=== PATIENT | male | born 1950 | race Caucasian/White ===

== ENCOUNTER → 2018-02-12 03:49 | Outpatient (CLI) | payer MEDICARE, SELFPAY ==
[2018-02-12 07:37] LABS: HCT 42.3 % (40.0-50.0); Mean Corp. HGB Concentration 33.1 g/dL (32.0-36.0); Mean Corpuscular Hemoglobin 28.9 pg (27.0-33.0); Mean Corpuscular Volume 87.4 fL (80-95); Mean Platelet Volume 9.9 fL (8.0-11.0); Platelet Count 213 x1000/uL (130-400); RBC 4.84 m/cumm (4.50-6.00); White Blood Cell Count 5.28 k/cumm (4.4-10.8)
[2018-02-12 08:47] LABS: Ferritin 17 ng/mL (8-388)
== END ==
PROVIDERS: PCP Emergency Medicine; Visit Provider Emergency Medicine
DX: D64.9 Anemia, unspecified (principal)
CPT/HCPCS: 36415; 85027; 82728

== ENCOUNTER 2018-03-22 07:41 | Day surgery (SDC) | payer MEDICARE, BC, SELFPAY ==
--- NOTE | 2018-03-22 06:55 | PDOC.DSDIS_ITS ---
Discharge Plan Disposition Patient Disposition: HOME Condition: Good Discharge Details Reason For Visit: colon cancer screening Attending Provider: Christa Mary Primary Care Provider: Mark Todd Home Meds and New Rx's Prescriptions: Continue multivitamin with iron [One Daily Multi-Vit w-Mineral] tablet 1 tab PO DAILY RF: 0 cholecalciferol (vitamin D3) 1,000 unit capsule 1,000 unit PO DAILY RF: 0 ferrous sulfate 325 mg (65 mg iron) tablet 325 mg PO BID RF: 0 betamethasone, augmented 50 GM gel 50 gm Topical BID PRN RF: 0 Discontinued polyethylene glycol 3350 17 gram powder in packet 255 g PO DAILY Qty: 15 RF: 0 bisacodyl [Dulcolax (bisacodyl)] 5 mg tablet,delayed release (DR/EC) 5 mg PO ONCE Qty: 4 RF: 0 Discharge Instructions Instructions: Colonoscopy (DC), Diverticulosis (DC) Additional Instructions: Findings: mild diverticulosis Follow up: 10 years New Medications: none Please call if you develop: fevers >101.5 Nausea or Vomiting Abdominal pain that is not transient 1. Because there will be medication in your system for the next 24 hours, you may feel a little sleepy. Your coordination will be affected. Therefore: a. Do not drive or operate dangerous equipment for 24 hours. b. Do not drink alcohol beverages for 24 hours (not even beer). c. Plan to go home and rest for the day. 2. Generally there are no restrictions on your activity after a day or so has gone by, but you may feel a bit fatigued for a few days. 3 After you arrive home you may have a light meal and return to a normal diet as you can tolerate it without feeling sick to your stomach. 4. After surgery, you may feel pain or discomfort. This should be only transient , but if it persists please contact your doctor. 5. If there are any questions regarding the findings of your procedure, please feel free to contact your doctor. 6. If you are unable to contact your doctor with a problem, contact the hospital at [phone]. 7. Continue all your regular medications unless directed otherwise. I understand the above instructions and have no questions. Signature of Patient or Responsible Adult Escort Date/Time Name of Responsible Adult Escort Signature of Nurse Date/Time Activity:: Activity as Tolerated Diet:: high fiber diet Discharge Orders Discharge Orders: Discharge Order (Routine); Ordered 03/22/18 Ordered By: Christa Mary
--- NOTE | 2018-03-22 06:56 | COLE_ITS ---
Colonoscopy Report Date of procedure: 03/22/18 Pre-op diagnosis general: Colon cancer screening Post-op diagnosis procedure note: other (Diverticulosis) Procedure: Colonoscopy Surgeon: Christa Mary Anesthesia proc note operative: MAC (José Antonio alvarez, CARMEN/ Erik Lobo, MIGUEL) Estimated blood loss (mL): 0 Pathology: none sent Complications: None Disposition: same day Indications: Mr. Medrano is a pleasant 67 year old seen in the office to discuss a screening Colonoscopy. His last Colonoscopy was in 2009 and was normal. Risks , benefits and complications have been reviewed. Complications include but are not limited to bleeding, pain, perforation, missed small lesion/polyp, sore throat, aspiration and adverse reaction to the medications. Questions were entertained and answered to their satisfaction and they wished to proceed. No guarantees were given or implied. Prep: Miralax/Dulcolax Procedure Start Time: 09:32 Procedure End Time: :51 Retraction Time: 11 minutes Findings: Mild diverticulosis of sigmoid colon Procedure Description: After informed consent was obtained the patient was taken to the procedure room and placed in a left decubitous position. Monitors were applied and a time out was done. The patients name, date of , procedure, allergies to medications and metal in their body was reviewed. The patient was then sedated. Once sedated and comfortable a rectal exam was done. External exam was normal. Internal exam revealed a normal sphincter tone and no palpable masses. The scope was then introduced and retrofelexed. No internal hemorrhoids were identified. The scope was then advanced to the cecum without difficulty. The TI and appendiceal orifice were identified. The scope was advanced into the ileum which was normal. The prep was adequate. The scope was then slowly retracted over 11 minutes back into the rectum. The scope was removed and the patient was woken up and taken back to Same day surgery in stable condition. The patient tolerated the procedure well and there were no immediate complications. Follow up: The patient should follow up in 10 years unless they develop changes in bowel habits or other new gastrointestinal complaints.
[2018-03-22 07:58] VITALS: BP 116/64; PULSE 60; RESP 16; TEMP 36; O2SAT 99
[2018-03-22] MEDS: Lactated Ringers 1,000 ML 80 ML IV (08:20)
[2018-03-22 10:20] VITALS: BP 100/66; PULSE 69; RESP 16; TEMP 35.9; O2SAT 96
== END 2018-03-22 10:45 | disposition home or self-care (01) ==
PROVIDERS: PCP Emergency Medicine; Visit Provider Surgery
PROC: 0DJD8ZZ Inspection of Lower Intestinal Tract, Via Natural or Artificial Opening Endoscopic (ICD-10-PCS; CPT 45378; principal; 2018-03-22 09:15)
DX: Z12.11 Encounter for screening for malignant neoplasm of colon (principal); K57.30 Diverticulosis of large intestine without perforation or abscess without bleeding
CPT/HCPCS: G0121

== ENCOUNTER → 2018-03-22 08:49 | Outpatient (BNVA) | payer MEDICARE, BC, SELFPAY | PROVIDERS: Visit Provider Surgery | DX: R69 Illness, unspecified (principal) ==

== ENCOUNTER 2020-02-17 07:58 | Outpatient (CLI) | payer MEDICARE, BC, SELFPAY ==
[2020-02-20 20:49] LABS: SARS-CoV-2 RNA Undetected (Undetected); SARS-CoV-2 Specimen Source Nasopharynx
== END 2020-02-17 08:18 ==
PROVIDERS: PCP Emergency Medicine; Visit Provider Physician Assistant
DX: Z11.59 Encounter for screening for other viral diseases (principal)
CPT/HCPCS: U0003

== ENCOUNTER 2020-04-20 17:55 | Emergency (ER) | payer MEDICARE, BC, SELFPAY ==
[2020-04-20 18:01] VITALS: BP 119/68; PULSE 69; RESP 18; TEMP 36.3; O2SAT 98
--- NOTE | 2020-04-20 18:15 | ED.GENADUL_ITS ---
Discharge Plan Disposition Patient Disposition: HOME Condition: Good Discharge Details Clinical Impression: Laceration of ear Primary Care Provider: Mark Todd ED Provider: Marylin Du Home Meds and New Rx's Prescriptions: Continued multivitamin with iron [One Daily Multi-Vit w-Mineral] tablet 1 tab PO DAILY RF: 0 cholecalciferol (vitamin D3) 1,000 unit capsule 1,000 unit PO DAILY RF: 0 ferrous sulfate 325 mg (65 mg iron) tablet 325 mg PO BID RF: 0 betamethasone, augmented 50 GM gel 50 gm Topical BID PRN RF: 0 Shingrix Adjuvant Component-PF Suspension 0.5 ml IM ONCE Qty: 0.5 RF: 1 Discharge Instructions Instructions: Laceration (ED) Additional Instructions: Keep wound clean and dry. Please allow the adhesive to come off naturally. Do not pick or pull at this. Do not put any ointment over this is may cause it to breakdown prematurely. May Tylenol and/or ibuprofen as needed for discomfort. Please monitor for signs infection including redness, warmth, drainage, increased pain, fever/chills. If he develop these or other new/worsening symptoms please seek care urgently once again. Otherwise, please follow up with primary care as needed. Referrals: Mark Todd, [Primary Care Provider] - Discharge Data Discharge Date/Time-TO BE ENTERED AT DEPARTURE: 04/20/20 18:37 Medical Decision Making Patient is a pleasant 69-year-old male presenting today with chief complaint of laceration to his left ear. He reports that prior to arrival he was running in the wise when a tree branch struck him in the ear. Denies other injury the time of the incident. Unknown tetanus status. On exam, patient has a 1 cm curvilinear laceration that does appear to be a slight flap over the antihelix. This does not go through or into the cartilage. No active bleeding. At the tip of the flap there is a very thin piece of tissue that potentially is nonviable. I did discuss with patient. Remaining the laceration does align very well. And I discussed risk/benefits of cleansing the wound and closing with adhesive. He voiced understanding and wished to proceed. Last tetanus was in 2011. Will update this today. Please see procedure note. Wound is copiously irrigating some clean the base in bloodless field no foreign body or debris noted. Wound edges were reapproximated and a thin layer of adhesive was applied. We discussed wound and adhesive care. He was given return precautions, in particular signs of infection. All his questions and concerns were addressed and he is agreement this plan. HPI General Mode of arrival: ambulatory . Date/Time Provider Initiated Documentation: 04/20/20 18:15 . Limitations to Documentation: no limitations . Information obtained by: patient and RN notes reviewed . History of Present Illness 69 year old M presents to the emergency department with the chief complaint of right ear laceration, described as mild, with intensity rated at 1. Quality is described as aching, and is localized to the head (ear). Patient reports no radiation. Patient started experiencing this hour(s) and it has been constant. No relieving factors improve symptom(s), No exacerbating factors reported . Patient notes no other symptoms.. Patient did receive the following treatments prior to arrival, none Related Data Home Medications Medication Instructions Recorded Confirmed betamethasone, augmented 50 gm TOPICAL BID PRN script 10/22/16 11/09/19 cholecalciferol (vitamin D3) 25 1,000 unit PO DAILY 03/10/18 11/09/19 mcg (1,000 unit) capsule ferrous sulfate 325 mg (65 mg 325 mg PO BID tab 03/10/18 11/09/19 iron) tablet multivitamin with iron 1 tab PO DAILY 03/10/18 11/09/19 adjuvant AS01B (PF)vial 1 of 2 0.5 ml IM ONCE #0.5 ml 03/20/20 Previous Rx's Medication Instructions Recorded adjuvant AS01B (PF)vial 1 of 2 0.5 ml IM ONCE #0.5 ml 03/20/20 Allergies Allergy/AdvReac Type Severity Reaction Status Date / Time Penicillins AdvReac Mild RASH Verified 04/09/20 11:04 General Stated Complaint: Laceration LEENA: 4 Review of Systems Constitutional Constitutional: Reports as per HPI, Denies chills and Denies fever(s) Musculoskeletal Musculoskeletal: Reports as per HPI Integumentary/Breasts Skin/Breast: Reports as per HPI Neurologic Neurologic: Reports as per HPI, Denies sensory deficit and Denies paresthesias [facility] Medical History Anemia Celiac disease Depression Diverticulosis large intestine w/o perforation or abscess w/bleeding DJD (degenerative joint disease) of knee Duodenitis Eczema Hearing loss Hemorrhoids Hx MRSA infection Surgical History Status post total left knee replacement (~2013) Family History Mother , age 83 Essential hypertension Heart disease Breast cancer Father , age 89 Heart disease Hyperlipidemia Stroke Brother , age 65 Alcohol abuse Cancer Daughter No problems noted. Daughter No problems noted. Maternal Grandfather , age 69 Lung cancer Paternal Grandfather , age 84 No problems noted. Maternal Grandmother No problems noted. Paternal Grandmother No problems noted. Social History Smoking/Tobacco Use Status: Never Second Hand Exposure: Yes Alcohol Intake: current Alcohol Intake frequency: 0-2 drinks per day Alcohol type: beer Drug use: Never Substance use type: marijuana Caregiver/Support person: No Household members: spouse Housing: house Communication Needs: Hard of Hearing Do you need help understanding health information?: Never Pets and animals: No Sexually active: No Do you think of yourself as: straight/heterosexual Current gender identity: male How often do you talk on the phone with friends or family?: three or more times per week How often do you get together with friends or relatives?: three or more times per week How often do you attend gnosticist or orthodox services?: 4 or more times per year Do you belong to any clubs or organized social groups?: no Panel score (0-1 are the most socially isolated patients): 2 What type of physical activity do you participate in: walking and weight lifting Duration: 15-30 minutes/day Frequency: 5-6 times per week Tomasa/Zoroastrian: Church Special tomasa needs: No Seatbelt use: always Helmet use: No Drive intox or ride w/intox helper/driver: No Do you feel safe at home: Yes Do you feel safe in your relationship?: Yes Exam Const General: cooperative, healthy appearing, comfortable, no acute distress and well developed Nutritional Appearance: average body habitus and well nourished Orientation: alert and awake [facility] Outer ear/TM images: 1. superficial flap laceration Resp Effort & Inspection: normal respiratory effort, able to speak in complete sentences and no respiratory distress Cardio Rate: regular rate Rhythm: regular rhythm Skin Trauma: laceration (as drawn above) Neuro General: patient alert and patient awake Cognition: normal cognition Speech: speech normal Gait: normal gait Sensory Exam: no sensory deficits noted Psych Appearance: grossly normal and well kempt Mental Status: mental status grossly normal Speech and Movement: speech and movement normal Course Vital Signs Vital signs: Vital Signs Temperature 36.3 C L 04/20/20 18:01 Pulse 69 04/20/20 18:01 Respiratory Rate 18 04/20/20 18:01 Blood Pressure 119/68 04/20/20 18:01 Pulse Oximetry 98 04/20/20 18:01 Temperature 36.3 C L 04/20/20 18:01 Temperature Source Tympanic 04/20/20 18:01 Pulse 69 04/20/20 18:01 Respiratory Rate 18 04/20/20 18:01 Respiratory Effort Non-Labored 04/20/20 18:02 Blood Pressure 119/68 04/20/20 18:01 Blood Pressure Position Sitting 04/20/20 18:01 Pulse Oximetry 98 04/20/20 18:01 Oxygen Delivery Method Room Air 04/20/20 18:01 Oxygen Flow Rate 0 04/20/20 18:01 Pain Level 1 04/20/20 18:01
== END 2020-04-20 18:37 | disposition home or self-care (01) ==
PROVIDERS: Emergency Provider Physician Assistant; PCP Emergency Medicine
DX: S01.311A Laceration without foreign body of right ear, initial encounter (principal); W20.8XXA Other cause of strike by thrown, projected or falling object, initial encounter
CPT/HCPCS: 12011; 90471

== ENCOUNTER 2020-05-10 09:07 | Outpatient (CLI) | payer MEDICARE, BC, SELFPAY ==
[2020-05-13 15:11] LABS: Patient Race White; SARS-CoV-2 RNA Undetected (Undetected); SARS-CoV-2 Specimen Source Nasal
== END 2020-05-10 09:27 ==
PROVIDERS: PCP Emergency Medicine; Visit Provider Nurse Practitioner Family
DX: Z11.59 Encounter for screening for other viral diseases (principal)
CPT/HCPCS: U0003

== ENCOUNTER 2020-11-13 09:19 | Outpatient (CLI) | payer MEDICARE, BC, SELFPAY ==
[2020-11-13 12:47] LABS: Ferritin 22 ng/mL (26-388)
[2020-11-13 17:09] LABS: PSA, Diagnostic 0.6 ng/mL (0.0-4.5)
== END 2020-11-13 09:20 | disposition home or self-care (01) ==
PROVIDERS: PCP Emergency Medicine; Visit Provider Emergency Medicine
DX: K90.0 Celiac disease (principal); N40.0 Benign prostatic hyperplasia without lower urinary tract symptoms
CPT/HCPCS: 36415; 82728; 84153

== ENCOUNTER 2021-11-21 17:23 | Outpatient (CLI) | payer MEDICARE, SELFPAY | END 2021-11-21 17:24 | disposition home or self-care (01) | LOC: LBO 17:27 | PROVIDERS: PCP Nurse Practitioner Family; Visit Provider Nurse Practitioner Family | DX: U07.1 COVID-19 (principal) | CPT/HCPCS: 36415; 82565 ==

== ENCOUNTER 2022-04-01 02:00 | Outpatient (CLI) | payer MEDICARE, SELFPAY ==
[2022-04-01 12:16] LABS: Abs Immature Grans 0.01 10^3/uL (0.0-0.06); Absolute Basophil Count 0.03 10^3/uL (0.0-0.2); Absolute Eosinophil Count 0.18 10^3/uL (0.0-0.7); Absolute Lymphocyte Count 2.05 10^3/uL (1.2-3.4); Absolute Monocyte Count 0.64 10^3/uL (0.1-0.8); Absolute Neutrophil Count 2.89 10^3/uL (1.2-6.7); Basophils % 0.5; Eosinophils % 3.1; HCT 43.1 % (40.0-50.0); Immature Grans % 0.2; Lymphocytes % 35.3; MCH 30.4 pg (27.0-33.0); MCHC 32.5 % (32.0-36.0); MCV 94 fL (80-95); MPV 9.9 fL (8.0-11.0); Neutrophils % 49.9; Platelet Count 247 10^3/uL (130-400); RDW 12.8 % (11.8-14.1); RDW-SD 44.1 fL
[2022-04-01 12:28] LABS: Iron 68 ug/dL (65-175); Total Iron Binding Capacity 314 ug/dL (250-450); Transferrin Sat 22 % (20-55)
[2022-04-01 12:36] LABS: ALT 60 U/L (16-63); AST 47 U/L (15-37); Albumin 3.6 g/dL (3.4-5.0); Alkaline Phosphatase 61 U/L (46-116); Anion Gap 7.7 mmol/L (3-11); BUN 17 mg/dL (7-18); Bilirubin, Total 0.2 mg/dL (0.2-1.0); CO2 27.3 mmol/L (21.0-32.0); Calcium 8.9 mg/dL (8.5-10.1); Calculated LDL 85 mg/dL (<100); Chloride 105 mmol/L (98-107); Cholesterol 145 mg/dL (<200); Estimated GFR 81.47 (mL/min/1.73m2); Ferritin 34 ng/mL (26-388); Glucose 90 mg/dL (74-106); HDL Cholesterol 53 mg/dL (40-60); Potassium 4.1 mmol/L (3.5-5.1); Sodium 140 mmol/L (136-145); Total Protein 6.7 g/dL (6.4-8.2); Triglyceride 35 mg/dL (<150)
== END 2022-04-01 02:01 | disposition home or self-care (01) ==
LOC: LOS 02:00
PROVIDERS: PCP Nurse Practitioner Family; Visit Provider Family Medicine
DX: I10 Essential (primary) hypertension (principal); E61.1 Iron deficiency; K90.0 Celiac disease; Z13.6 Encounter for screening for cardiovascular disorders
CPT/HCPCS: 36415; 80053; 80061; 82728; 83540; 83550; 85025

== ENCOUNTER 2022-11-30 07:42 | Emergency (ER) | payer MEDICARE, SELFPAY ==
[2022-11-30 07:53] VITALS: BP 138/67; PULSE 68; RESP 14; TEMP 36.8; O2SAT 97
--- NOTE | 2022-11-30 08:31 | ED.GENADUL_ITS ---
Discharge Plan Disposition Patient Disposition: Home Condition: Stable Discharge Details Clinical Impression: Tick bite of left axillary region Primary Care Provider: Rickey Strong ED Provider: Omid Rincon Home Meds and New Rx's Prescriptions: Continued multivitamin with iron [One Daily Multi-Vit w-Mineral] tablet 1 tab PO DAILY cholecalciferol (vitamin D3) 1,000 unit capsule 1,000 unit PO DAILY ferrous sulfate 325 mg (65 mg iron) tablet 325 mg PO DAILY Discontinued halobetasol propionate 0.05 % ointment 1 applic topical BID PRN cephalexin 500 mg capsule 500 mg PO PRN Rx Instructions: Take 2000mg 1 hour prior to dental appointment Discharge Instructions Instructions: Tick Bite (ED) Referrals: Rickey Strong, [facility] [Primary Care Provider] - Medical Decision Making 72-year-old male here with tick bite left axilla 3 days ago with small pimple this morning. Patient notes tick was attached for approximately 2 to 3 hours. He regularly performs tick checks and is certain the tick could not of been attached longer. Tick was not engorged. Tick was a dog tick. No signs of infection or really any inflammation at tick bite site other than small raised papule. Plan for discharge with continued monitoring. Usual and customary discharge instructions reviewed with patient. HPI General Mode of arrival: ambulatory . Date/Time Provider Initiated Documentation: 11/30/22 07:58 . Limitations to Documentation: no limitations . Information obtained by: patient . History of Present Illness 72 year old M presents to the emergency department with the chief complaint of tick bite, described as mild, and is localized to the left (axillla). Patient started experiencing this day(s) (3) Related Data Home Medications Medication Instructions Recorded Confirmed cholecalciferol (vitamin D3) 25 1,000 unit PO DAILY 03/10/18 11/30/22 mcg (1,000 unit) capsule multivitamin with iron (One Daily 1 tab PO DAILY 03/10/18 11/30/22 Multivitamins with Minerals tablet) ferrous sulfate 325 mg (65 mg 325 mg PO DAILY 11/15/21 11/30/22 iron) tablet Allergies Allergy/AdvReac Type Severity Reaction Status Date / Time Penicillins AdvReac Mild RASH Verified 11/30/22 07:56 General Stated Complaint: RashLesion LEENA: 4 Review of Systems Constitutional Constitutional: Denies fever(s) Neurologic Neurologic: Denies paresthesias [facility] All Active Problems Tick bite of left axillary region (Acute) Iron deficiency (Acute) chronic mild prior w/u at [facility] 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 Celiac disease (Chronic) Remote diagnosis - after eval for borderline anemia with low ferritin Remote diagnosis at [facility]-no GI symptoms, diagnosed after evaluation for iron deficiency-borderline anemia Positive antibody test, unclear evaluation at [facility]. Notes not available for review looks as a work-up occurred before EMR no old notes available. Per patient no response to gluten therapy and he has discontinued this Unclear if this was biopsy proven. No response to gluten therapy, no symptoms on regular diet Question diagnosis Acquired hallux rigidus (Chronic) right great toe Medical History Anemia Celiac disease COVID Depression Diverticulosis large intestine w/o perforation or abscess w/bleeding DJD (degenerative joint disease) of knee Duodenitis Eczema Hearing loss Hemorrhoids Hx MRSA infection Surgical History Status post total left knee replacement (~2013) Family History Mother , age 83 Essential hypertension Heart disease Breast cancer Father , age 89 Heart disease Hyperlipidemia Stroke Brother , age 65 Alcohol abuse Cancer Daughter No problems noted. Daughter No problems noted. Maternal Grandfather , age 69 Lung cancer Paternal Grandfather , age 84 No problems noted. Maternal Grandmother No problems noted. Paternal Grandmother No problems noted. Social History Smoking/Tobacco Use Status: Never Second Hand Exposure: Yes Smoking risk assessment performed?: Yes Alcohol Intake: current Alcohol Intake frequency: a few times a week Alcohol type: beer Drug use: Never Substance use type: does not use Caregiver/Support person: No Household members: spouse Housing: house Communication Needs: Hard of Hearing and Corrective Lenses Do you need help understanding health information?: Never Pets and animals: No Sexually active: No Do you think of yourself as: straight/heterosexual Current gender identity: male What is your relationship status?: How often do you talk on the phone with friends or family?: three or more times per week How often do you get together with friends or relatives?: three or more times per week How often do you attend advent or quaker services?: 4 or more times per year Do you belong to any clubs or organized social groups?: yes Panel score (0-1 are the most socially isolated patients): 4 What type of physical activity do you participate in: weight lifting Duration: 30-45 minutes/day Frequency: 3-4 times per week Tomasa/Church: [employer] Special tomasa needs: No Seatbelt use: always Helmet use: No Drive intox or ride w/intox test driver: No Do you feel safe at home: Yes Do you feel safe in your relationship?: Yes Exam Const General: cooperative and no acute distress Skin General skin exam: no erythema, no fluctuance and no induration Lesions: other (2mm tick bite with no inflammation left axilla) Extrem Other: no left axillary lymphadenopathy Course Vital Signs Vital signs: Vital Signs Temperature 36.8 C 11/30/22 07:53 Pulse 68 11/30/22 07:53 Respiratory Rate 14 11/30/22 07:53 Blood Pressure 138/67 11/30/22 07:53 Pulse Oximetry 97 11/30/22 07:53 Temperature 36.8 C 11/30/22 07:53 Temperature Source Temporal Artery Scan 11/30/22 07:53 Pulse 68 11/30/22 07:53 Respiratory Rate 14 11/30/22 07:53 Blood Pressure 138/67 11/30/22 07:53 Blood Pressure Position Sitting 11/30/22 07:53 Pulse Oximetry 97 11/30/22 07:53 Oxygen Delivery Method Room Air 11/30/22 07:53 Oxygen Flow Rate 0 11/30/22 07:53
== END 2022-11-30 08:49 | disposition home or self-care (01) ==
PROVIDERS: Emergency Provider Student in an Organized Health Care Education/Training Program; PCP Nurse Practitioner Family
DX: S40.862A Insect bite (nonvenomous) of left upper arm, initial encounter (principal); W57.XXXA Bitten or stung by nonvenomous insect and other nonvenomous arthropods, initial encounter
CPT/HCPCS: 99281; 99282

== ENCOUNTER 2024-01-12 03:33 | Outpatient (CLI) | payer MEDICARE, SELFPAY ==
--- OUTSIDE RECORDS SUMMARY | 2024-01-12 03:35 | XMS_ITS | Encounter Summary ---
Author Organization [facility] [place] [address] Care Team Providers Care [employer] Phot[employer] Detailer Name Role Phone Mark Todd DO Primary Care Provider Encounter Details Date Type Department Care Team (Late st Contact Info) Description 04/04/2011 2:15 PM EDT [place] [id number] Diamante Wang RN Social History Tobacco Use Types Packs/Day Years Used Date Smoking Tobacco: Never Assessed Sex and Gender Information Value Date Recorded Sex Assigned at Not on file Gender Identity Not on file Sexual Orientation Not on file documented as of this encounter Plan of Treatment Not on file documented as of this encounter Visit Diagnoses Not on filedocumented in this encounter Care Teams [employer] Phot[employer] Detailer Relationship Specialty Start Date End Date Mark Todd DO [address] [place] [address] PCP - General 05/21/10 documented as of this encounter
--- OUTSIDE RECORDS SUMMARY | 2024-01-12 03:35 | XMS_ITS | Encounter Summary ---
Author Organization Replaced By [facility] [place] [address] Care Team Providers Care Fluid Designer Name Role Phone Perez, Mark KYE Primary Care Provider Reason for Visit * Reason Comments Follow-up Encounter Details Date Type Department Care Team ([facility] st Contact Info) Description 12/22/2013 3:15 PM EDT Office Visit Dermatology at [address] [place] [phone] Phani Nolasco MD [address] [place] [address] [place] [address] Irritant contact dermatitis (Primary Dx) Social History Tobacco Use Types Packs/Day Years Used Date Smoking Tobacco: Never Sex and Gender Information Value Date Recorded Sex Assigned at Not on file Gender Identity Not on file Sexual Orientation Not on file documented as of this encounter Patient Instructions * Patient Instructions* Eneida Rain LPN - 12/22/2013 3:59 PM EDT [facility] Dermatitis: After Your Visit Your Care Instructions Dermatitis is the general name used for any rash or inflammation of the skin. Different kinds of dermatitis cause different kinds of rashes. Common causes of a rash include new medicines, plants (such as poison oak or poison gasper), heat, stress, and allergies to soaps, cosmetics, detergents, chemicals, and fabrics. Certain illnesses can also cause a rash. Unless caused by an infection, these rashes cannot be spread from person to person. How long your rash will last depends on what caused it. Rashes may last a few days or months. Follow-up care is a little part of your treatment and safety. Be sure to make and go to all appointments, and call your doctor if you are having problems. It???s also a good idea to know your test results and keep a list of the medicines you take. How can you care for yourself at home? ?? Do not scratch. Cut your nails short, and file them smooth. Or you may wear gloves if this helpskeep you from scratching. ?? If you use soap on the rash, choose a gentle soap and use as little as possible. ?? Put cold, wet cloths on the rash to reduce itching. ?? Keep cool, and stay out of the sun. Heat makes itching worse. ?? Leave the rash open to the air when you can. If your clothes have to cover the rash, wear cottonor silk. ?? If the rash itches, use hydrocortisone cream. Follow the directions on the label. Calamine lotion may help for plant rashes. ?? Try an [id number]-tlf-[id number] antihistamine such as diphenhydramine (Benadryl) or chlorpheniramine (Chlor-Trimeton). Follow the directions on the label. ?? If you get a prescription steroid cream or pills, use them as directed. When should you call for help? Call your doctor now or seek immediate medical care if: ?? You have signs of infection, such as: ?? Increased pain, swelling, warmth, or redness. ?? Red streaks leading from the rash. ?? Pus draining from the rash. ?? A fever. ?? You have joint pain along with the rash. ?? The rash gets worse or spreads to other parts of your body. Watch closely for changes in your health, and be sure to contact your doctor if: ?? You do not get better after 2 to 3 weeks of home treatment. Where can you learn more? Visit our health information library at [email or web address] Networkso You can also view health information on [employer], your personal patient account. Log in or sign up today. Enter F270 in the search box to learn more about Dermatitis: After Your Visit. ?? [id number] [employer]. Care instructions adapted under license by [facility]. This care instruction is for use with your licensed healthcare professional. If you have questions about a medical condition or this instruction, always ask your healthcare professional. [employer] disclaims any warranty or liability for your use of this information. Content Version: 9.9.081514; Last Revised: November 12, 2012 documented in this encounter Progress Notes * Phani Nolasco MD - 12/22/2013 4:10 PM EDT Problem List: 1. Followup stasis dermatitis with autoeczematization. 2. History of patch test positive 3+ reaction to formaldehyde and diazolidinyl urea, 1+ reaction to budesonide. Mervin follows up and has been doing well. He found the Tubigrip stockings a bit problematic, so he is not wearing any support stockings. The clobetasol used sparingly was helpful and he has not really needed to use that much at all. The CeraVe seemed to make his skin more red, so he stopped that and instead just uses Vanicream as needed. Physical examination reveals a pleasant 62-year-old gentleman whose patchy erythema over the lateral arms has largely cleared. He continues to not have any areas of ulceration and today has no dermatitis of the lower extremities. His varicosities are not inflamed. Assessment and Plan: 1. Stasis dermatitis with autoeczematization now quiescent. a. Continue using Vanicream as needed as emollient, and clobetasol cream sparingly as needed for mild flares of his dermatitis. b. Continue to avoid his contact allergens. He knows that given his allergy to formaldehyde releasers that permanent press products will tend to irritate his skin and he tries to avoid those, but does not like to iron so does wear them to a degree. In fact, these may be playing a role when he has flares of his dermatitis. In any case, avoid his contact allergens and therefore would stick with his clobetasol sparingly p.r.n. and the Vanicream. Return to clinic will be p.r.n. COPY: Mark Todd D.O. documented in this encounter Plan of Treatment Not on file documented as of this encounter Visit Diagnoses Diagnosis Irritant contact dermatitis- Primary Contact dermatitis and other eczema, due to unspecified cause documented in this encounter Care Teams Fluid Designer Relationship Specialty Start Date End Date Mark Todd DO [address] [place] [address] PCP - General 05/21/10 documented as of this encounter
--- OUTSIDE RECORDS SUMMARY | 2024-01-12 03:35 | XMS_ITS | Encounter Summary ---
Author Organization Formerly [facility] [place] [address] Care Team Providers Care Climbing Guide Name Role Phone Mark Todd DO Primary Care Provider [phone] Reason for Visit * Reason Comments Follow-up Skin Check Encounter Details Date Type Department Care Team (Late st Contact Info) Description 06/15/2018 9:45 AM EST Office Visit Dermatology at [address] [phone] Phani Nolasco MD [address] [place] [address] [place] [address] Eczema, unspecified type; Tinea pedis of left foot Social History Tobacco Use Types Packs/Day Years Used Date Smoking Tobacco: Never Smokeless Tobacco: Never Sex and Gender Information Value Date Recorded Sex Assigned at Not on file Gender Identity Not on file Sexual Orientation Not on file documented as of this encounter Progress Notes * Phani Nolasco MD - 06/15/2018 9:45 AM EST Problem: 1. New dermatitis left lateral foot 2. Follow-up stasis dermatitis with auto eczematization 3. History of patch testing 3+ reaction to formaldehyde and diazolidinyl urea, 1+ reaction to budesonide Mervin follows up and has been doing well with the betamethasone dipropionate cream. He uses it sparingly, one tube has lasted him for the whole year. He does have little itchy spots on his arms and legs and he shows me today some eczematous papules. He says however that this winter after season his feet got quite cold and he was wearing hunting boots and then he developed a rash on the left lateral foot. He first tried the betamethasone cream there but that worsened it. He then has been using Lotrimin without benefit and switched to Tinactin which has been clearing the foot rash. Physical examination reveals a pleasant 67-year-old gentleman who has fading erythema on the left lateral foot extending back from the fifth digit which has its nail plate involved with tinea unguium, in a posterior direction to his ankle. He has erythematous excoriated papules on his hand and arm,2 or 3 are present today. He has varicosities of the lower extremity but minimal dermatitis on his calves and shins. Assessment plan: New onset this fall of left lateral foot dermatitis, responding to antifungal creams, probable tinea pedis. 1. Patient this morning applied Tinactin cream, any attempt at a diagnostic REBEKAH would be difficult to interpret in this setting 2. Clinical impression is that of tinea pedis. Continue Tinactin daily twice daily until erythema on foot clears. History of eczematous dermatitis, stasis dermatitis with auto eczematization 1. Now mostly quiescent 2. Patient is certainly not overusing his betamethasone dipropionate cream, will call in a refill [facility] in [place] for a 45 g tube with 3 refills. Continue to use sparingly once to twice daily. 3. Continue to avoid his known contact allergens. Return to clinic in 1 year CC: Mark Todd DO documented in this encounter Plan of Treatment Not on file documented as of this encounter Visit Diagnoses Diagnosis Eczema, unspecified type Tinea pedis of left foot Dermatophytosis of foot documented in this encounter Care Teams Climbing Guide Relationship Specialty Start Date End Date Mark Todd DO [address] [place] [address] PCP - General 05/21/10 documented as of this encounter
--- OUTSIDE RECORDS SUMMARY | 2024-01-12 03:35 | XMS_ITS | Encounter Summary ---
Author Organization [facility] [place] [address] Care Team Providers Care Machine I Cutter Name Role Phone Mark Todd DO Primary Care Provider Reason for Visit * Reason Comments Medication Refill Encounter Details Date Type Department Care Team (Late st Contact Info) Description 09/16/2023 Refill Dermatology at [address] [place] [address] Phani Nolasco MD [address] [place] [address] Social History Tobacco Use Types Packs/Day Years [...] on filedocumented in this encounter Care Teams Machine I Cutter Relationship Specialty Start Date End Date Mark Todd DO [address] [place] [address] [address] [place] [address] PCP - General 05/21/10 documented as of this encounter
--- OUTSIDE RECORDS SUMMARY | 2024-01-12 03:35 | XMS_ITS | Encounter Summary ---
Author Organization [facility] [place] [address] Care Team Providers Care Director Of Occupational Therapy Name Role Phone aMrk Todd DO Primary Care Provider Encounter Details Date Type Department Care Team (Late st Contact Info) Description 06/15/2018 Refill Dermatology at [address] [place] [address] Mariana Wild, EPIDEMIOLOGY INTERN Social History Tobacco Use Types Packs/Day Years [...] on filedocumented in this encounter Care Teams Director Of Occupational Therapy Relationship Specialty Start Date End Date Mark Todd DO [address] [place] [address] PCP - General 05/21/10 documented as of this encounter
--- OUTSIDE RECORDS SUMMARY | 2024-01-12 03:35 | XMS_ITS | Encounter Summary ---
Author Organization [facility] Address [facility] [place] [address] Care Team Providers Care Converter Operator Name Role Phone Mark Todd DO Primary Care Provider [phone] Reason for Visit * Reason Comments Allergy Testing Encounter Details Date Type Department Care Team ([facility] st Contact Info) Description 04/03/2011 3:15 PM EDT [place] [phone] José Antonio Dhillon MD [facility] [address] [place] [address] Contact dermatitis (Primary Dx) Discharge Disposition: Home Social History Tobacco Use Types Packs/Day Years Used Date Smoking Tobacco: Never Assessed Sex and Gender Information Value Date Recorded Sex Assigned at Not on file Gender Identity Not on file Sexual Orientation Not on file documented as of this encounter Last Filed Vital Signs Vital Sign Reading Time Taken Comments Blood Pressure 131/69 04/03/2011 3:05 PM EDT Pulse 68 04/03/2011 3:05 PM EDT Temperature - - Respiratory Rate 24 04/03/2011 3:05 PM EDT Oxygen Saturation 98% 04/03/2011 3:05 PM EDT Inhaled Oxygen Concentration - - Weight 79.4 kg (175 lb) 04/03/2011 3:05 PM EDT Height 180.3 cm (5' 11) 04/03/2011 3:05 PM EDT Body Mass Index 24.41 04/03/2011 3:05 PM EDT documented in this encounter Progress Notes * José Antonio Dhillon MD - 04/03/2011 3:22 PM EDT Subjective: Patient ID: Mervin Medrano is a 60 y.o. male. HPI Rash - unchanged from previously, on arms Patch testing placed 48 hours ago Review of Systems All other ROS neg Objective: Physical Exam Appears well in NAD Patch test read today showed 2+ response to formaldehyde (#21) and diazolidinyl urea (#25) Other true tests #1-29 were negative Assessment and Plan: Contact dermatitis - we discussed avoidence of substances containing formaldehyde (#21) and diazolidinyl urea (#25) He can take zyrtec for pruritis but avoid use of steroid creams on his back until he can return tomorrow for 72 hour patch test read 12 minutes out of this 16 minute visit (lasting from 3:10 - 3:26 pm) were spent in counseling discussing avoidence substances that may contain formaldehyde (#21) and diazolidinyl urea (#25) documented in this encounter Plan of Treatment Not on file documented as of this encounter Visit Diagnoses Diagnosis Contact dermatitis- Primary Contact dermatitis and other eczema, due to unspecified cause documented in this encounter Care Teams Converter Operator Relationship Specialty Start Date End Date Mark Todd DO [address] [place] [address] PCP - General 05/21/10 documented as of this encounter
--- OUTSIDE RECORDS SUMMARY | 2024-01-12 03:35 | XMS_ITS | Encounter Summary ---
Author Organization [facility] Address [facility] [place] [address] Care Team Providers Care Mortgage Accounting Clerk Name Role Phone Perez, Mark KEY Primary Care Provider [phone] Reason for Visit * Reason Comments Follow-up Encounter Details Date Type Department Care Team ([facility] st Contact Info) Description 04/04/2011 1:45 PM EDT [place] [phone] José Antonio Dhillon MD [facility] [address] ALLERGY [place] [address] Contact dermatitis (Primary Dx) Discharge Disposition: Home Social History Tobacco Use Types Packs/Day Years Used Date Smoking Tobacco: Never Assessed Sex and Gender Information Value Date Recorded Sex Assigned at Not on file Gender Identity Not on file Sexual Orientation Not on file documented as of this encounter Progress Notes * José Antonio Dhillon MD - 04/04/2011 2:20 PM EDT Subjective: Patient ID: Mervin Medrano is a 60 y.o. male. HPI Here for 72 hr patch test read Back itches a bit Rash still present on lower legs Review of Systems All other ROS neg Objective: Physical Exam Appears well in NAD Mild red papules on lower legs Final patch test read shows 3+ response to formaldehyde (#21) and diazolidinyl urea (#25), similar to yesterday He has new 3+ response to Imidazolidinyl urea (#26) and 1+ to budesonide (#27); other true tests #1-29 are negative Assessment and Plan: Contact dermatitis - he will avoid compounds containing formaldehyde (#21) and diazolidinyl urea (#25), Imidazolidinyl urea (#26) and budesonide (#27); he will try longer acting antihistamines such as cetirizine or fexofenadine prn for pruritis He will use moisturizing cream but avoid creams that may contain the above substances 13 minutes out of this 16 minute visit (lasting from 2:07 pm - 2:23 pm) discussing avoidence of contact sensitizers including formaldehyde (#21) and diazolidinyl urea (#25), Imidazolidinyl urea (#26)and budesonide (#27), including wood smoke and certain clothing items which may contain formaldehyde documented in this encounter Plan of Treatment Not on file documented as of this encounter Visit Diagnoses Diagnosis Contact dermatitis- Primary Contact dermatitis and other eczema, due to unspecified cause documented in this encounter Care Teams Mortgage Accounting Clerk Relationship Specialty Start Date End Date Mark Todd DO [address] [place] [address] PCP - General 05/21/10 documented as of this encounter
--- OUTSIDE RECORDS SUMMARY | 2024-01-12 03:35 | XMS_ITS | Encounter Summary ---
Author Organization [facility] [place] [address] Care Team Providers Care Title Examiner Name Role Phone Perez Mark KEY Primary Care Provider [phone] Encounter Details Date Type Department Care Team (Late st Contact Info) Description 03/15/2009 [place] [phone] Rehan Hernandez MD DERMATOLOGY Social History Tobacco Use Types Packs/Day Years Used Date Smoking Tobacco: Never Assessed Sex and Gender Information Value Date Recorded Sex Assigned at Not on file Gender Identity Not on file Sexual Orientation Not on file documented as of this encounter Plan of Treatment Not on file documented as of this encounter Procedures Procedure Name Priority Date/Time Associated Diagnosis Comments SURGICAL PATHOLOGY REPORT Routine 03/15/2009 12:32 PM EDT documented in this encounter Results * Surgical Pathology Report (03/15/2009 12:32 PM EDT) Pathologist [facility] Surgical Pathology Report [id number] ? Location: 4M The signing pathologist has (i) examined the relevant preparation(s) for the specimen(s) and (ii) rendered or confirmed the diagnosis(es). . ?Pathology Surgical Pathology Final Report Clinical Information Specimen Submitted: A - 4-mm punch, left shoulder, skin: Clinical History: Multiple erythematous granular well delineated plaques on legs arms trunk Clinical Diagnosis: GA vs CTCL vs eczema vs sarcoid Gross Description Labeled/Fixative: ? Labeled with the patient's name, formalin. Qty/Size/Weight: ?Single punch, 0.4 cm, yellow-mobley skin excised ?to a depth of 0.6 cm. Sections/Processi ng: ??Bisected. ??(T1) ??vms/EJR Microscopic Description Slides reviewed, microscopic description not recorded. Diagnosis Skin, left shoulder, punch biopsy: ?? Spongiotic dermatitis with acanthosis, focal parakeratosis, superficial perivascular lymphocytic infiltrate mixed with eosinophils (see Comment). CR-0 03/16/09 JLK 03/18/09 Verified by: ? Ten CALHOUN, PhD, Klarissa ?Dermatopatholog ist ?(Electronic Signature) The attending pathologist whose signature appears on this report has reviewed all diagnostic slides and has edited the gross and/or microscopic portion of the report in rendering the final pathologic diagnosis. Comment The histologic changes are ?? consistent with ??a spongiotic/eczema tous dermatitis. ??A PAS stain for fungal organisms is negative. ??Dermal granulomatous infiltrate is not seen. The findings are not diagnostic of CTCL. Follow up is recommended with re- biopsy if there is persistent or recurrent lesion, or if clinically indicated. KIMBERLEE PERDUE 03/15/2009 12:3 2 PM EDT Rehan Hernandez MD PATHOLOGY/CYTOLOGY O RDERABLES KIMBERLEE PERDUE documented in this encounter Visit Diagnoses Not on filedocumented in this encounter Care Teams Title Examiner Relationship Specialty Start Date End Date Mark Todd DO [address] [place] [address] [address] [place] [address] PCP - General 05/21/10 documented as of this encounter
--- OUTSIDE RECORDS SUMMARY | 2024-01-12 03:35 | XMS_ITS | Encounter Summary ---
Author Organization [facility] [address] Care Team Providers Care Plant General Manager Name Role Phone Perez Mark KEY Primary Care Provider [phone] Encounter Details Date Type Department Care Team (Late st Contact Info) Description 04/06/2009 [place] [phone] Heron Frey MD DERMATOPATHOLOGY Social History Tobacco Use Types Packs/Day Years [...] Associated Diagnosis Comments SURGICAL PATHOLOGY REPORT Routine 04/06/2009 5:45 PM EDT documented in this encounter Results * Surgical Pathology Report (04/06/2009 5:45 PM EDT) Pathologist [facility] Surgical Pathology Report [id number] ? Location: 4M The signing pathologist has (i) examined the relevant preparation(s) for the specimen(s) and (ii) rendered or confirmed the diagnosis(es). . ?Pathology Surgical Pathology Final Report Clinical Information Specimen Submitted: A - Skin, L anabaptism, Incisional biopsy (1): B - Skin, L anabaptism, 4-mm Punch (1): Clinical History: 3 cm fluctuant nodule on the L anabaptism, growing rapidly -- culture grew MRSA Clinical Diagnosis: Botryomycosis, furunculosis, atypical mycobacterial, deep fungal. Gross Description A - Labeled/Fixative : A exc left anabaptism, formalin. Qty/Size/Weight: ?Single, 0.9 x 0.4 x 0.3 cm. Tissue Description: ?? There is a pale, mobley-pink skin surface. Sections/Process ing: ??Inked. ??Trisected. ??Apical sections are ?submitted in (A1); cross-section in (A2) ?(T2) B - Labeled/Fixative : B punch L anabaptism, formalin. Qty/Size/Weight: ?Single punch, 0.4 cm, there is a pale, ?mobley-pink skin surface. Sections/Process ing: ??Bisected. ??(T1) ??vms/PPS Microscopic Description Slides reviewed, microscopic description not recorded. Special stains are performed. ?? Block ? Stain ?Result ( Positive / Negative ) ??A2,B1 ? AFB,GMS,Gram ?See comment. ?on each block Diagnosis A - Left anabaptism, incisional biopsy: ?Dermal neutrophilic abscess with necrosis (see Comment). B - Left anabaptism, punch biopsy: ?Dermal neutrophilic abscess with necrosis (see Comment). CR-0 04/09/09 VMS 04/09/09 Verified by: ? Rolly Maldonado MD ?Dermatopatholo gist ?(Electronic Signature) The attending pathologist whose signature appears on this report has reviewed all diagnostic slides and has edited the gross and/or microscopic portion of the report in rendering the final pathologic diagnosis. . Comment A & B - There is an extensive dermal neutrophilic infiltrate with abscess formation in the superficial and deep dermis. ??The infiltrate also involves hair follicles. ??The findings are similar to those seen in the previous specimens ([id number]). Stains for organisms (AFB, GMS, and Gram) were performed on sections from blocks A2 and B1. ??No definite bacteria were identified in the Gram-stained section from block A2. ??AFB and GMS stains were negative in sections from block A2. ??Gram stain on sections from block B1 showed an area in the deep dermis with Gram-positive cocci in clusters. ??AFB and GMS stains were negative in sections from block B1. ??The findings suggest infection. ??Correlation with culture results is recommended. KIMBERLEE PERDUE 04/06/2009 5:45 PM EDT Heron Frey MD PATHOLOGY/CYTOLOGY O MICHELLE KIMBERLEE PERDUE documented in this encounter Visit Diagnoses Not on filedocumented in this encounter Care Teams Plant General Manager Relationship Specialty Start Date End Date Mark Todd DO [address] [place] [address] PCP - General 05/21/10 documented as of this encounter
--- OUTSIDE RECORDS SUMMARY | 2024-01-12 03:35 | XMS_ITS | Encounter Summary ---
Author Organization [facility] [place] [address] Care Team Providers Care Keyboard Specialist Name Role Phone Mark Todd DO Primary Care Provider Encounter Details Date Type Department Care Team (Late st Contact Info) Description 04/03/2011 3:20 PM EDT [place] [phone] Diamante Wang RN Social History Tobacco Use [...] on filedocumented in this encounter Care Teams Keyboard Specialist Relationship Specialty Start Date End Date Mark Todd DO [address] [place] [address] PCP - General 05/21/10 documented as of this encounter
--- OUTSIDE RECORDS SUMMARY | 2024-01-12 03:35 | XMS_ITS | Encounter Summary ---
Author Organization [facility] [place] [address] Care Team Providers Care Desktop Technician Name Role Phone Mark Todd DO Primary Care Provider Encounter Details Date Type Department Care Team (Late st Contact Info) Description 07/31/2016 Refill Dermatology at [address] [place] [address] Mariana Wild, AUDIO VIDEO MECHANIC Social History Tobacco Use Types Packs/Day Years Used Date Smoking Tobacco: Never Sex and Gender Information Value Date Recorded Sex Assigned at Not on file Gender Identity Not on file Sexual Orientation Not on file documented as of this encounter Plan of Treatment Not on file documented as of this encounter Visit Diagnoses Not on filedocumented in this encounter Care Teams Desktop Technician Relationship Specialty Start Date End Date Mark Todd DO [address] [place] [address] PCP - General 05/21/10 documented as of this encounter
--- OUTSIDE RECORDS SUMMARY | 2024-01-12 03:35 | XMS_ITS | Clinical Summary ---
Author Organization [facility] [place] [address] Care Team Providers Care District Fire Management Officer Name Role Phone Mark Todd DO Primary Care Provider [phone] Allergies Active Allergy Reactions Criticality Noted Date Comments Cyclosporine 08/04/2013 Penicillins 08/04/2013 Medications Medication Sig Dispensed Refills Start Date End Date Status betamethasone dipropionate (DIPROLENE) 0.05 % Cream Apply to rash areas twice daily, prn 45 g 3 06/15/2018 Active tacrolimus (Protopic) 0.1 % Ointment APPLY TO RASH ON LEG TWO TIMES A DAY 60 g 5 09/16/2023 Active Active Problems Problem Noted Date Diagnosed Date Irritant contact dermatitis 12/22/2013 Allergic contact dermatitis 08/04/2013 Stasis dermatitis 08/04/2013 Social History Tobacco Use Types Packs/Day Years Used Date Smoking Tobacco: Never Smokeless Tobacco: Never Sex and Gender Information Value Date Recorded Sex Assigned at Not on file Gender Identity Not on file Sexual Orientation Not on file Last Filed Vital Signs Vital Sign Reading Time Taken Comments Blood Pressure 127/81 02/05/2012 4:06 PM EDT Pulse 64 02/05/2012 4:06 PM EDT Temperature - - Respiratory Rate 16 02/05/2012 4:06 PM EDT Oxygen Saturation 99% 02/05/2012 4:06 PM EDT Inhaled Oxygen Concentration - - Weight 79.4 kg (175 lb) 04/03/2011 3:05 PM EDT Height 180.3 cm (5' 11) 04/03/2011 3:05 PM EDT Body Mass Index 24.41 04/03/2011 3:05 PM EDT Plan of Treatment Health Maintenance Due Date Last Done Comments CT Colonography 1950 Colonoscopy 1950 Colorectal Cancer Screening 1950 FIT DNA 1950 FIT 1950 Sigmoidoscopy (10 year) with FIT yearly 1950 Sigmoidoscopy 1950 Hepatitis C Screening 1970 Lipid Screening 1970 Tdap adult 12/01/1971 Tetanus vaccine 12/01/1971 Zoster vaccine (1 of 2) 2002 Advance Directive 12/01/2007 Pneumoccocal Vaccine: 65+ (1 of 1 - PCV) 2017 Covid-19 Vaccine (1 - 2022-24 season) 2023 Influenza (Flu) vaccine (1 o f 1 - Influenza standard series) 02/28/2024 Care Teams District Fire Management Officer Relationship Specialty Start Date End Date Mark Todd DO [address] [place] [address] [address] [place], [place] [id number] PCP - General 05/21/10
--- OUTSIDE RECORDS SUMMARY | 2024-01-12 03:35 | XMS_ITS | Encounter Summary ---
Author Organization [facility] [place] [address] Care Team Providers Care Nba Player Name Role Phone Mark Todd DO Primary Care Provider [phone] Reason for Visit * Reason Comments Skin Check Encounter Details Date Type Department Care Team ([facility] st Contact Info) Description 08/04/2013 3:00 PM EST Office Visit Dermatology at [address] [phone] Phani Nolasco MD [address] [place] [address] [place] [address] Allergic contact dermatitis (Primary Dx); Stasis dermatitis, left Social History Tobacco Use Types Packs/Day Years Used Date Smoking Tobacco: Never Sex and Gender Information Value Date Recorded Sex Assigned at Not on file Gender Identity Not on file Sexual Orientation Not on file documented as of this encounter Progress Notes * Phani Nolasco MD - 08/04/2013 3:11 PM EST Problem: Dermatitis. Mervin is a 62-year-old gentleman who since the summer has had problems with dermatitis that seemed to begin on his legs, on the left leg in particular; but then it has involved both of his arms and occasionally on the underarms. He has been seen at [facility] and also at [facility] in the Allergy Clinic. Unfortunately, despite allergy testing and use of topical corticosteroid creams, he has been unable to stop a cycle of relative skin clearing and healing and then recurrence of his itchy dermatitis. Dr. Dhillon has done patch testing and found a 3+ response to formaldehyde and a diazolidinyl urea and a 1+ reaction to budesonide. Budesonide is a class B corticosteroid and in fact can cross react with fluocinonide and with triamcinolone. Problem: Pruritic dermatitis. Mervin is a 62-year-old gentleman who since last summer has had problems with pruritic dermatitis. It seemed to begin on his left leg and then became more generalized. He has been seen at [facility], but also at [facility] at the Allergy Clinic. Patch testing there apparently showed that he had a 3+ reaction to formaldehyde and a diazolidinyl urea and also had a +1 reaction to budesonide. He has been using triamcinolone and fluocinonide creams that were given to him by various providers for his itchy dermatitis, which seemed to have developed after he was mowing in a field. 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 He denies any past history of eczema or dermatitis. He is otherwise healthy but does have fairly marked varicosities of the left lower extremity. Orally he takes ibuprofen. The patient is seen in consultation today for Mark Todd. Physical examination reveals a pleasant, 62-year-old gentleman who has today patchy erythema over the lateral arms and some postinflammatory hyperpigmentation over the varicosities on the left lower extremity. He does not have any areas of ulceration. He has relatively minimal subcutaneous hemosiderin deposition of the left lower extremity. He has fairly minimal active dermatitis today. Assessment and Plan: Stasis dermatitis with autoeczematization, probably compounded by allergic contact dermatitis to budesonide and cross reacting to fluocinonide and triamcinolone creams. a. Discontinue triamcinolone and fluocinonide creams. b. Instead I recommended 1% clobetasol cream, applying sparingly to areas of pruritus as needed; 60 grams dispensed with two refills. c. Today the patient was provided with a pair of Tubigrip support stockings, 24-inch size D, that he can wear on a daily basis, taking off at night. d. I asked him to contact me in two to three weeks with his progress. I suspect with the combination of the above interventions that his pruritus will gradually decrescendo and then resolve. e. Return to clinic here at the point of diminishing returns. COPY: Mark Todd D.O. Note: Half an hour was spent with the patient, more than half spent in counseling. documented in this encounter Plan of Treatment Not on file documented as of this encounter Visit Diagnoses Diagnosis Allergic contact dermatitis- Primary Contact dermatitis and other eczema, due to unspecified cause Stasis dermatitis, left documented in this encounter Care Teams Nba Player Relationship Specialty Start Date End Date Mark Todd DO [address] [facility] [address] [place] [address] PCP - General 05/21/10 documented as of this encounter
--- OUTSIDE RECORDS SUMMARY | 2024-01-12 03:35 | XMS_ITS | Encounter Summary ---
Author Organization [facility] Address [facility] [place] [address] Care Team Providers Care Tongue Lining Stitcher Name Role Phone Mark Todd DO Primary Care Provider Reason for Visit * Reason Onset Date Comments Medication Refill 11/05/2011 Encounter Details Date Type Department Care Team (Late st Contact Info) Description 11/05/2011 [place] [address] José Antonio Dhillon MD [facility] [place] [address] Dermatitis; Multiple allergies Social History Tobacco Use Types Packs/Day Years Used Date Smoking Tobacco: Never Assessed Sex and Gender Information Value Date Recorded Sex Assigned at Not on file Gender Identity Not on file Sexual Orientation Not on file documented as of this encounter Miscellaneous Notes * Telephone Encounter - Karen Rivero - 11/05/2011 11:24 AM EDT PLEASE CALL [facility] documented in this encounter Plan of Treatment Not on file documented as of this encounter Visit Diagnoses Diagnosis Dermatitis Contact dermatitis and other eczema, due to unspecified cause Multiple allergies Other allergy, other than to medicinal agents documented in this encounter Care Teams Tongue Lining Stitcher Relationship Specialty Start Date End Date Mark Todd DO [address] [place], [place] [address] PCP - General 05/21/10 documented as of this encounter
--- OUTSIDE RECORDS SUMMARY | 2024-01-12 03:35 | XMS_ITS | Encounter Summary ---
Author Organization [facility] Address [facility] [place] [address] Care Team Providers Care Heating And Cooling Technician Name Role Phone Mark Todd DO Primary Care Provider Reason for Visit * Reason Onset Date Comments Medication Refill 08/13/2011 Encounter Details Date Type Department Care Team ([facility] st Contact Info) Description 08/13/2011 [place] [address] José Antonio Dhillon MD [facility] [address] [place] [address] Dermatitis Social History Tobacco Use Types Packs/Day Years Used Date Smoking Tobacco: Never Assessed Sex and Gender Information Value Date Recorded Sex Assigned at Not on file Gender Identity Not on file Sexual Orientation Not on file documented as of this encounter Miscellaneous Notes * Telephone Encounter - Marlene Araujo - 08/13/2011 9:07 AM EST He wouldl like this in a larger container if possible, please. documented in this encounter Plan of Treatment Not on file documented as of this encounter Visit Diagnoses Diagnosis Dermatitis Contact dermatitis and other eczema, due to unspecified cause documented in this encounter Care Teams Heating And Cooling Technician Relationship Specialty Start Date End Date Mark Todd DO [address] [place], [place] [address] PCP - General 05/21/10 documented as of this encounter
--- OUTSIDE RECORDS SUMMARY | 2024-01-12 03:35 | XMS_ITS | Encounter Summary ---
Author Organization [facility] Address [address] [place] [address] Care Team Providers Care Automobile Parker Name Role Phone Perez Mark Bhakta DO Primary Care Provider [phone] Encounter Details Date Type Department Care Team (Late st Contact Info) Description 11/13/2020 Lab Requisition [facility] Pathology & Laboratory Medicine - [facility] [address] [place], [place] [id number] Outr Resulting Lab, Provider Social History Tobacco Use Types Packs/Day Years Used Date Smoking Tobacco: Never Assessed Sex and Gender Information Value Date Recorded Sex Assigned at Not on file Gender Identity Not on file Sexual Orientation Not on file documented as of this encounter Plan of Treatment Not on file documented as of this encounter Procedures Procedure Name Priority Date/Time Associated Diagnosis Comments PSA TOTAL, DIAGNOSTIC Routine 11/13/2020 9:23 EDT documented in this encounter Results * PSA TOTAL, DIAGNOSTIC (11/13/2020 9:23 EDT) PSA 0.6 0.0 - 4.5 ng/mL 11/13/2020 17:05 EDT [facility] Blood VENOUS BLOOD / Unknown 11/13/2020 9:23 EDT 11/13/2020 15:46 EDT Narrative [facility] - 11/13/2020 17:05 EDT NOTE: Serum PSA concentration should not be interpreted as absolute evidence for the presence or absence of malignant disease. Assayed on Siemens Banyanaur XPT using chemiluminescent technology.??Values obtained by using different assay methods cannot be used interchangeably. Provider Outr Resulting Lab CHEMISTRY & BLOOD GAS ORDERABLES [facility] [address] [place] [address] documented in this encounter Visit Diagnoses Not on filedocumented in this encounter Care Teams Automobile Parker Relationship Specialty Start Date End Date Mark Todd DO [address] [place] [address] PCP - General 07/03/09 documented as of this encounter
--- OUTSIDE RECORDS SUMMARY | 2024-01-12 03:35 | XMS_ITS | Encounter Summary ---
Author Organization [facility] Address [facility] [place] [address] Care Team Providers Care Warehouse Coordinator Name Role Phone Mark Todd DO Primary Care Provider Reason for Visit * Reason Onset Date Comments Medication Refill 07/02/2011 Encounter Details Date Type Department Care Team (Late st Contact Info) Description 07/02/2011 [place] [address] José Antonio Dhillon MD [facility] [address] [place] [address] Dermatitis Social History Tobacco Use Types Packs/Day Years Used Date Smoking Tobacco: Never Assessed Sex and Gender Information Value Date Recorded Sex Assigned at Not on file Gender Identity Not on file Sexual Orientation Not on file documented as of this encounter Miscellaneous Notes * Telephone Encounter - Marlene Araujo - 07/02/2011 3:58 PM EST [facility] documented in this encounter Plan of Treatment Not on file documented as of this encounter Visit Diagnoses Diagnosis Dermatitis Contact dermatitis and other eczema, due to unspecified cause documented in this encounter Care Teams Warehouse Coordinator Relationship Specialty Start Date End Date Mark Todd DO [address] [place], [place] [address] PCP - General 05/21/10 documented as of this encounter
--- OUTSIDE RECORDS SUMMARY | 2024-01-12 03:35 | XMS_ITS | Encounter Summary ---
Author Organization [facility] [place] [address] Care Team Providers Care Certified Alcohol Counselor Name Role Phone Mark Todd DO Primary Care Provider Reason for Visit * Reason Onset Date Comments Medication Refill 09/29/2011 Encounter Details Date Type Department Care Team (Late st Contact Info) Description 09/29/2011 [place] [address] José Antonio Dhillon MD [facility] [address] ALLERGY [place] [address] Dermatitis Social History Tobacco Use Types Packs/Day [...] cause documented in this encounter Care Teams Certified Alcohol Counselor Relationship Specialty Start Date End Date Mark Todd DO [address] [place] [address] PCP - General 05/21/10 documented as of this encounter
--- OUTSIDE RECORDS SUMMARY | 2024-01-12 03:35 | XMS_ITS | Encounter Summary ---
Author Organization [facility] [place] [address] Care Team Providers Care Home Health Manager Name Role Phone Mark Todd DO Primary Care Provider Encounter Details Date Type Department Care Team (Late st Contact Info) Description 08/13/2011 Telephone [place] [phone] José Antonio Dhillon MD [facility] [address] [place] [address] Social History Tobacco Use Types Packs/Day Years Used Date Smoking Tobacco: Never Assessed Sex and Gender Information Value Date Recorded Sex Assigned at Not on file Gender Identity Not on file Sexual Orientation Not on file documented as of this encounter Miscellaneous Notes * Telephone Encounter - Jose D Olivas LPN - 08/13/2011 10:06 AM EST RX for larger tube called into [facility] for Kenalog 0.1% cream. RX now for 80gram tube. documented in this encounter Plan of Treatment Not on file documented as of this encounter Visit Diagnoses Not on filedocumented in this encounter Care Teams Home Health Manager Relationship Specialty Start Date End Date Mark Todd DO [address] [place] [address] PCP - General 05/21/10 documented as of this encounter
--- OUTSIDE RECORDS SUMMARY | 2024-01-12 03:35 | XMS_ITS | Clinical Summary ---
Author Organization [facility] Address [address] [place] [address] Care Team Providers Care Access Liaison Name Role Phone Mark Todd DO Primary Care Provider [phone] Social History Tobacco Use Types Packs/Day Years Used Date Smoking Tobacco: Never Assessed Sex and Gender Information Value Date Recorded Sex Assigned at Not on file Gender Identity Not on file Sexual Orientation Not on file Plan of Treatment Health Maintenance Due Date Last Done Comments Hepatitis C Screen 1950 RSV Immunization ( o r 60+ Years) (1 - 1-dose 60+ series) 2012 Fall Risk Screening 2017 COVID-19 Vaccine (2022-24 season) 2023 Care Teams Access Liaison Relationship Specialty Start Date End Date Mark Todd DO [address] [place] [address] PCP - General 07/03/09
--- OUTSIDE RECORDS SUMMARY | 2024-01-12 03:35 | XMS_ITS | Encounter Summary ---
Author Organization [facility] Includes [facility] [address] Care Team Providers Care Teller Supervisor Name Role Phone Mark Todd DO Primary Care Provider Reason for Visit * Reason Comments Skin Check Encounter Details Date Type Department Care Team (Late st Contact Info) Description 06/24/2016 2:15 PM EST Office Visit Dermatology at [address] [phone] Phani Nolasco MD [address] [place] [address] [place] [address] Eczema, unspecified type Social History Tobacco Use Types Packs/Day Years Used Date Smoking Tobacco: Never Sex and Gender Information Value Date Recorded Sex Assigned at Not on file Gender Identity Not on file Sexual Orientation Not on file documented as of this encounter Progress Notes * Phani Nolasco MD - 06/24/2016 2:15 PM EST PROBLEM: 1. Followup stasis dermatitis with autoeczematization. 2. History of patch test positive 3+ reaction to formaldehyde and diazolidinyl urea, 1+ reaction to budesonide. Mervin follows up and continues to need clobetasol on a regular basis. At least weekly he will have outbreaks on his arms or legs, and will have to use the clobetasol because of how itchy these spots are. Tubigrip stockings never helped him in the past. He does not like wearing them, and they seem to cause more swelling. CeraVe cream seems to make his skin more red, so is just using Vanicream as needed. Physical examination reveals a pleasant 65-year-old gentleman who has varicosities widely in the left lower extremity. He has some purpura on the forearm, small 1-cm patches. Additionally he does have small, nummular-size eczematous patches scattered sparsely on the arms and legs. A/P: Stasis dermatitis with autoeczematization, now mostly quiescent. a. Patient discusses how using chlorhexidine for his knee surgery prep he was able to treat his skin, all of his rash went away. We recommend that he try bleach/bath water soaks twice weekly to see if that will not help his rash. Perhaps Staph or Strep colonization is driving his eczematous dermatitis. Add one-half cup of bleach to bath full tub of water, and soak for 10 to 15 minutes twice weekly. b. Plan B would be utilizing chlorhexidine soap, applying this on a twice-weekly basis during a shower to treat his skin. c. May continue p.r.n. use of clobetasol cream and I would be happy to call in more of this if he needs it. He wants to try to use it more sparingly and that would be my goal also. d. Continue to avoid his contact allergens. Return to clinic in another year for repeat check. cc: Mark Todd DO documented in this encounter Plan of Treatment Not on file documented as of this encounter Visit Diagnoses Diagnosis Eczema, unspecified type documented in this encounter Care Teams Teller Supervisor Relationship Specialty Start Date End Date Mark Todd DO [address] [place] [address] PCP - General 05/21/10 documented as of this encounter
--- OUTSIDE RECORDS SUMMARY | 2024-01-12 03:35 | XMS_ITS | Encounter Summary ---
Author Organization [facility] Address [facility] [place] [address] Care Team Providers Care Fraud Analyst Name Role Phone PerezMark kay Primary Care Provider Reason for Visit * Reason Comments Skin Check Encounter Details Date Type Department Care Team (Late st Contact Info) Description 03/31/2012 3:30 PM EDT [place] [address] CLINIC, DR PARI Merida, Sp Echevarria MD [facility] [place] [address] Atopic dermatitis (Primary Dx); Inflamed seborrheic keratosis; Dermal nevus Discharge Disposition: Home Social History Tobacco Use Types Packs/Day Years Used Date Smoking Tobacco: Never Assessed Sex and Gender Information Value Date Recorded Sex Assigned at Not on file Gender Identity Not on file Sexual Orientation Not on file documented as of this encounter Progress Notes * Sp Merida MD - 03/31/2012 3:50 PM EDT DERMATOLOGY ESTABLISHED PATIENT CLINIC NOTE Date of service: 03/31/2012 Mervin Medrano : 1950 Provider: Danilo Merida MD PROBLEM: Rash SKIN HISTORY: HPI Mr. Medrano is a 61 y.o. male here with rash on his arms and legs that comes and goes off the past 3 years.He uses Triamcinolone to keep the itching down.Today he has a spot on his bilateral forearms and on his right posterior thigh.Have not had oozing lesion since 2008.He is frustrated by the itch. On the inititial episode he had 2nd infection but has controlled the rash since with triamcinolone ADR: Review of patient's allergies indicates no known allergies. Medication:Triamcinolone 0.1% ointment ROS General: feeling well Skin: denies other skin complaints EXAM General: NAD, pleasant, cooperative Skin: A total body skin exam except for areas covered by underwear was performed. This includes examination of the skin of the face, ears, neck, chest, axillae, left and right upper and lower extremities, hands and feet, abdomen, and except the areas covered by underwear were not examined. Significant skin findings: A. Diffuse dry skin on legs and thighs,little bit of eczema on the left palm with Hyperkeratosis ofthe palm B. Irritated 0.4cm brown verrucous papule with red base with waxy, stuck-on appearance on the rightforearm C.1cm brown papule on the central back D.no actinic damage on face ASSESSMENT/PLAN: A. Atopic Dermatitis.controlled with triamcinolone, continue triamcinolone 0.1% ointment refills given B. Irritated Seborrheic Keratosis-reassured C.Dermal Nevus-reassured D. Discussed moisturizing at least twice daily with a thick moisturizing cream Vanicream, Cerave oreven plain vaseline E. Education about Atopic Dermatitis F.If flares return to clinic Note initiated by: BLAIR HONEYCUTT LPN Routed to physician for review and changes: Danilo Merida MD Section of Dermatology [facility] documented in this encounter Plan of Treatment Not on file documented as of this encounter Visit Diagnoses Diagnosis Atopic dermatitis- Primary Other atopic dermatitis and related conditions Inflamed seborrheic keratosis Dermal nevus Benign neoplasm of skin, site unspecified documented in this encounter Care Teams Fraud Analyst Relationship Specialty Start Date End Date Mark Todd DO [address] [place] [address] PCP - General 05/21/10 documented as of this encounter
--- OUTSIDE RECORDS SUMMARY | 2024-01-12 03:35 | XMS_ITS | Encounter Summary ---
Author Organization [facility] Address [facility] [place] [address] Care Team Providers Care Interstate Bus Driver Name Role Phone Mark Todd DO Primary Care Provider Reason for Visit * Reason Comments Allergic Reaction Encounter Details Date Type Department Care Team ([facility] st Contact Info) Description 04/01/2011 2:15 PM EDT [place] [phone] José Antonio Dhillon MD [facility] [place] [address] Dermatitis; History of MRSA infection; Allergic rhinitis Discharge Disposition: Home Social History Tobacco Use Types Packs/Day Years Used Date Smoking Tobacco: Never Assessed Sex and Gender Information Value Date Recorded Sex Assigned at Not on file Gender Identity Not on file Sexual Orientation Not on file documented as of this encounter Last Filed Vital Signs Vital Sign Reading Time Taken Comments Blood Pressure 131/73 04/01/2011 2:31 PM EDT Pulse 72 04/01/2011 2:31 PM EDT Temperature - - Respiratory Rate 19 04/01/2011 2:31 PM EDT Oxygen Saturation - - Inhaled Oxygen Concentration - - Weight 77.1 kg (170 lb) 04/01/2011 2:31 PM EDT Height 180.3 cm (5' 11) 04/01/2011 2:31 PM EDT Body Mass Index 23.71 04/01/2011 2:31 PM EDT documented in this encounter Patient Instructions * Patient Instructions* José Antonio Dhillon MD - 04/01/2011 3:15 PM EDT Follow up for patch test read on 04/03 at 3:30 pm (come at 3 pm) Follow up for patch test read on Wednesday 04/04 at 2:30 (come at 2 pm) documented in this encounter Progress Notes * José Antonio Dhillon MD - 04/01/2011 2:48 PM EDT Subjective: Patient ID: Mervin Medrano is a 60 y.o. male. HPI 1. Rash - on chest and backs of arms, present for years, triamcinolone helps, moderate severity, worse in spring and summer, occurred after cleaning roof drains 2. History of MRSA infection - occurred 1 year ago, sores on arms got infected, moderate to severe,improved with antibiotics 3. Nasal congestion - present in spring and fall, occurred several years ago, mild to moderate, improving since then Referred by Dr Todd for evaluation and mangement of severe eczema. I reviewed his note from 01/08/11 which documents that he has a history of celiac disease with anemia and MRSA and also severe eczema; he was treating the eczema with triamcinolone 0.1% ointment as needed which he refilled that day. Past medical history, medications and allergies: reviewed and updated in e[facility] Social history: no pets, nonsmoker Family history: allergic rhinitis in daughter Review of Systems Constitutional: Negative. HENT: Positive for congestion and rhinorrhea. Eyes: Negative. Respiratory: Negative. Cardiovascular: Negative. Gastrointestinal: Negative. Genitourinary: Negative. Musculoskeletal: Negative. Skin: Positive for rash. Neurological: Negative. Hematological: Negative. Psychiatric/Behavioral: Negative. Objective: Physical Exam Nursing note and vitals reviewed. Constitutional: Oriented to person, place, and time. Well-developed and well- nourished. No distress. HENT: Head: Normocephalic and atraumatic. Right Ear: External ear normal. Left Ear: External ear normal. Nose: Nose normal. Mouth/Throat: Oropharynx is clear and moist. No oropharyngeal exudate. Eyes: Conjunctivae and EOM are normal. Pupils are equal, round, and reactive to light. Right eye exhibits no discharge. Left eye exhibits no discharge. No scleral icterus. Neck: Normal range of motion. Neck supple. No JVD present. No tracheal deviation present. No thyromegaly present. Cardiovascular: Normal rate, regular rhythm, normal heart sounds and intact distal pulses. Exam reveals no gallop and no friction rub. No murmur heard. Pulmonary/Chest: Effort normal and breath sounds normal. No stridor. No respiratory distress. No wheezes. No rales. No tenderness. Abdominal: Soft. Bowel sounds are normal. No distension and no mass. No tenderness. No rebound and no guarding. Musculoskeletal: Normal range of motion. No edema and no tenderness. Lymphadenopathy: No cervical adenopathy. Neurological: Alert and oriented to person, place, and time. Skin: Skin is warm and dry. SCATTERED RED PAPULES ON UPPER AMRS. Not diaphoretic. No pallor. Psychiatric: Normal mood and affect. Behavior is normal. Judgment and thought content normal. Old notes reviewed and summarized in HPI Skin testing was performed and showed an intact histamine (7, 25) 2+ to grass mix (10, 30), radha grass (7, 20), dust mites DF (9, 25) and DP (3, 15), tree mix (8,30), alternaria (5, 25), maple (7, 25), pigweed (3, 20), oak (7, 25), beech (8, 25), and hickory (3, 15) and other tests were negative (0, 2) including saline, cat, weed mix, giant ragweed, birch, dog,aspergillus mix, stephen, jeffers's quarter,cocklebur,poplar, penicillium, cladosporium, and helminthosporium. Total of 26 tests placed. Consistent with seasonal and perennial allergic rhinitis Patch testing performed today with true tests #1-29 Assessment and Plan: 1. Dermatitis - likely combination of contact and atopic dermatitis He will initiate dust mite precautions Will return in 2 hour for patch test read to determine if contact dermatitis is also playing a role 2. MRSA infection - We spoke about using moisturizing creams to reduce the risk of infection He does not want to go back and see Dermatology so will continue to monitor for infections for the time being He can use bactroban at the first sign of a sign infection 3. Allergic rhinitis - He will initiate dust mite precautions and use cetirizine prn for intermittent symptoms documented in this encounter Plan of Treatment Scheduled Orders Name Type Priority Associated Diagnoses Orde r Schedule PATCH TEST (SKIN) Procedures Routine Dermatitis Ordered: 04/01/2011 documented as of this encounter Visit Diagnoses Diagnosis Dermatitis Contact dermatitis and other eczema, due to unspecified cause History of MRSA infection Personal history of Methicillin resistant Staphylococcus aureus Allergic rhinitis Allergic rhinitis, cause unspecified documented in this encounter Care Teams Interstate Bus Driver Relationship Specialty Start Date End Date Mark Todd DO [address] [place] [address] PCP - General 05/21/10 documented as of this encounter
--- OUTSIDE RECORDS SUMMARY | 2024-01-12 03:35 | XMS_ITS | Encounter Summary ---
Author Organization [facility] [place] [address] Care Team Providers Care Dietary Services Manager Name Role Phone Mark Todd DO Primary Care Provider [phone] Encounter Details Date Type Department Care Team (Late st Contact Info) Description 03/29/2009 [place] [id number] Rehan Hernandez MD DERMATOLOGY Social History Tobacco [...] Associated Diagnosis Comments SURGICAL PATHOLOGY REPORT Routine 03/29/2009 7:53 AM EDT documented in this encounter Results * Surgical Pathology Report (03/29/2009 7:53 AM EDT) Surgical Pathology Report [id number] ? Location: 4M The signing pathologist has (i) examined the relevant preparation(s) for the specimen(s) and (ii) rendered or confirmed the diagnosis(es). . ?Pathology Surgical Pathology Final Report Clinical Information Specimen Submitted: A - Skin left episcopal, shave: B - Skin Right parietal, shave: Clinical History: Hyperkeratotic nodule on right parietal scalp and left episcopal, developed over past week. ??Previous biopsy revealed spongiotic process. ??Generalized eczema. ??Treated with cyclosporine. Clinical Diagnosis: Pyoderma vs. KA Gross Description A - Labeled/Fixative : A - left episcopal, formalin. Qty/Size/Weight: ?Single shave, 1.1 x 0.8 x 0.1 cm. Tissue Description: ?? Isaacs skin with a 0.8-cm, yellow-brown papule. Sections/Process ing: ??Quadrisected. ??(T1) B - Labeled/Fixative : B - R parietal scalp, formalin. Qty/Size/Weight: ?Single shave, 1.4 x 1.3 x 0.4 cm. Tissue Description: ?? Yellow-brown plaque. Sections/Process ing: ??Quadrisected. ??(T1) jlk/SNS Microscopic Description Slides reviewed, microscopic description not recorded. Diagnosis A and B - Skin left episcopal and right parietal, shave biopsies: ? Extensive dermal neutrophilic abscess with necrosis (see Comment). CR-0 04/03/09 SY 04/03/09 Verified by: ? Ten CALHOUN, PhD, Klarissa ?Dermatopatholo gist ?(Electronic Signature) The attending pathologist whose signature appears on this report has reviewed all diagnostic slides and has edited the gross and/or microscopic portion of the report in rendering the final pathologic diagnosis. Comment The biopsy shows extensive dermal neutrophilic infiltrate with abscess formation. The inflammatory infiltrate involves multiple hair follicles with follicular rupture. Gram stains reveal scattered bacterial cocci within dermis and follicular lumen. GMS stains reveal numerous fungal budding yeast forms within follicular lumen, consistent with pityrosporum (Malassezia furfur). Overall the findings suggest infection. Correlation with culture is recommended. Diagnostic features of keratoacanthoma are not seen. [facility] 03/29/2009 7:53 AM EDT Rehan Hernandez MD PATHOLOGY/CYTOLOGY O RDERABLES Performing Organization Address City/State/[facility] Co de Phone Number [facility] documented in this encounter Visit Diagnoses Not on filedocumented in this encounter Care Teams Dietary Services Manager Relationship Specialty Start Date End Date Mark Todd DO [address] [place] [address] PCP - General 05/21/10 documented as of this encounter
--- OUTSIDE RECORDS SUMMARY | 2024-01-12 03:35 | XMS_ITS | Encounter Summary ---
Author Organization [facility] Address [facility] [place] [address] Care Team Providers Care Printed Circuit Boards Laminator Name Role Phone Mark Todd DO Primary Care Provider Reason for Visit * Reason Onset Date Comments Medication Refill 10/06/2011 Encounter Details Date Type Department Care Team ([facility] st Contact Info) Description 10/06/2011 Refill [place] [address] José Antonio Dhillon MD [facility] DR ALLERGY [place] [address] Dermatitis; Multiple allergies Social History Tobacco Use Types Packs/Day Years Used Date Smoking Tobacco: Never Assessed Sex and Gender Information Value Date Recorded Sex Assigned at Not on file Gender Identity Not on file Sexual Orientation Not on file documented as of this encounter Miscellaneous Notes * Telephone Encounter - Marlene Araujo - 10/06/2011 10:07 AM EDT He called last week to get this filled and the pharmacy tells him they don't have anything from us yet. documented in this encounter Plan of Treatment Not on file documented as of this encounter Visit Diagnoses Diagnosis Dermatitis Contact dermatitis and other eczema, due to unspecified cause Multiple allergies Other allergy, other than to medicinal agents documented in this encounter Care Teams Printed Circuit Boards Laminator Relationship Specialty Start Date End Date Mark Todd DO [address] [place] [address] PCP - General 05/21/10 documented as of this encounter
--- OUTSIDE RECORDS SUMMARY | 2024-01-12 03:35 | XMS_ITS | Encounter Summary ---
Author Organization [facility] [place] [address] Care Team Providers Care Application Tester Name Role Phone Mark Todd DO Primary Care Provider [phone] Reason for Referral * Consultation (Routine) - Closed Specialty Diagnoses / Procedures Referred By Jase herbert Referred To Contact Dermatology Diagnoses CONTACT DERM USE MOBILE NUMBER COORDINATE WITH José Antonio Dhillon MD [facility] [address] [place] [address] [facility] [address] [place] [id number] Referral ID Status Reason Start Date Expiration Date V isits Requested Visits Authorized [id number] Closed Consult, Test & Treat 02/05/2012 08/03/2012 1 1 Reason for Visit * Reason Comments Follow-up Encounter Details Date Type Department Care Team ([facility] Contact Info) Description 02/05/2012 3:45 PM EDT [place] [address] José Antonio Dhillon MD [facility] [address] [place] [address] Contact dermatitis; Allergic rhinitis Discharge Disposition: Home Social History [...] EDT Inhaled Oxygen Concentration - - Weight - - Height - - Body Mass Index - - documented in this encounter Progress Notes * José Antonio Dhillon MD - 02/05/2012 4:11 PM EDT Subjective: Patient ID: Mervin Medrano is a 61 y.o. male. HPI Here for follow up contact dermatitis - Final patch test read showed 3+ response to formaldehyde (#21) and diazolidinyl urea (#25), similar to yesterday He has new 3+ response to Imidazolidinyl urea (#26) and 1+ to budesonide (#27); other true tests #1-29 were negative Still has red rash on upper arms bilaterally and hands Using kenalog prn on arms Allergic rhinitis - pos testing to dust mites and pollens Has mattress covers & other dust mite precautions in place Has intermittent sneezing but not needing antihistamines Review of Systems All other systems reviewed and are negative. Objective: Physical Exam Nursing note and vitals reviewed. Constitutional: He appears well-developed and well-nourished. No distress. Skin: Skin is warm and dry. Rash noted. He is not diaphoretic. There is erythema. No pallor. Small red papules are present on upper arms bilaterally Assessment and Plan: Contact dermatitis - he will continue avoidence of triggers He can use triamcinolone prn on his body, avoid use on the face I will refer him back to see Dermatology given his history of MRSA especially, in order to determine if other etiologies may be impacting symptoms Allergic rhinitis - also possible atopic dermatitis We reviewed dust mite precautions today and he can also use non-sedating antihistamines prn for symptoms This entire 26 minutes face to face visit was spent in counseling reviewing avoidence of triggers for allergic rhinitis and contact dermatitis as well as different causes of his rash. I did express that I thought that allergic rhinitis/dermatitis is likely a minor contributor to his symptoms at thepresent time so investigation for other causes including good followup with dermatology is indicated. documented in this encounter Plan of Treatment Scheduled Referrals Name Type Priority Associated Diagnoses Order Schedule REFERRAL TO DERMATOLOGY Outpatient Referral Routine Contact dermatitis Ordered: 02/05/2012 documented as of this encounter Visit Diagnoses Diagnosis Contact dermatitis Contact dermatitis and other eczema, due to unspecified cause Allergic rhinitis Allergic rhinitis, cause unspecified documented in this encounter Care Teams Application Tester Relationship Specialty Start Date End Date Mark Todd DO [address] [place] [address] PCP - General 05/21/10 documented as of this encounter
--- OUTSIDE RECORDS SUMMARY | 2024-01-12 03:35 | XMS_ITS | Encounter Summary ---
Author Organization [facility] [place] [address] Care Team Providers Care Grommet Machine Operator Name Role Phone Mark Todd DO Primary Care Provider Reason for Visit * Reason Onset Date Comments Medication Refill 07/21/2011 Encounter Details Date Type Department Care Team (Late st Contact Info) Description 07/21/2011 [place] [address] José Antonio Dhillon MD [facility] [address] [place] [address] Dermatitis Social History Tobacco Use Types Packs/Day [...] cause documented in this encounter Care Teams Grommet Machine Operator Relationship Specialty Start Date End Date Mark Todd DO [address] [place] [address] PCP - General 05/21/10 documented as of this encounter
--- OUTSIDE RECORDS SUMMARY | 2024-01-12 03:35 | XMS_ITS | Referral Summary ---
Author Organization [facility] Address [address] [place] [address] Care Team Providers Care Public Health Aides Teacher Name Role Phone Mark Todd DO Primary Care Provider [phone] Social History Tobacco Use Types Packs/Day Years Used Date Smoking Tobacco: Never Assessed Sex and Gender Information Value Date Recorded Sex Assigned at Not on file Gender Identity Not on file Sexual Orientation Not on file Plan of Treatment Not on file Care Teams Public Health Aides Teacher Relationship Specialty Start Date End Date Mark Todd DO [address] [place] [address] [place] [address] PCP - General 07/03/09
[2024-01-12 15:55] LABS: HCT 39.6 % (40.0-50.0); HGB 13.4 g/dL (13.5-17.5); MCH 31.4 pg (27.0-33.0); MCHC 33.8 % (32.0-36.0); MCV 93 fL (80-95); MPV 9.5 fL (8.0-11.0); Platelet Count 232 10^3/uL (130-400); RBC 4.27 10^6/uL (4.36-5.78); RDW 13.2 % (11.8-14.1); WBC 5.82 10^3/uL (4.4-10.8)
[2024-01-13 09:18] LABS: PSA, Screening 0.7 ng/mL (<=6.5)
== END 2024-01-12 03:34 | disposition home or self-care (01) ==
LOC: LBO 03:33
PROVIDERS: PCP Nurse Practitioner Family; Visit Provider Nurse Practitioner Family
DX: E61.1 Iron deficiency (principal); Z12.5 Encounter for screening for malignant neoplasm of prostate
CPT/HCPCS: 36415; 84153; 85027

== ENCOUNTER 2024-08-11 10:52 | Outpatient (CLI) | payer MEDICARE, SELFPAY ==
--- NOTE | 2024-08-11 09:45 | DI.RAD_ITS ---
Exam(s) XR SHOULDER RT COMPLETE 2+V EXAM: XR SHOULDER RT COMPLETE 2+V CLINICAL HISTORY: right shoulder pain M25.511 PAIN RT SHOULDER. TECHNIQUE: 2D digital imaging was performed. COMPARISON: CR CHEST 2 VIEWS PA,LAT from 08/15/2016 FINDINGS: Five views Evidence of fracture or dislocation and there are no abnormal soft tissue calcifications in the subac romial space. There is a small osteophyte on the inferior articular surface of the humeral head. Multiple small de generative subarticular cysts are seen in the lateral aspect of the humeral head. There are no obvio us degenerative subarticular cysts in the osseous glenoid. There is widening of the ipsilateral AC joint which may be postsurgical. There is also a corticated 4 x 3 millimeter calcific density in the superior aspect of the widened ipsilateral AC joint space. No other clavicle findings. IMPRESSION: Mild-moderate degenerative changes in the glenohumeral joint. Widened right AC joint which may be postoperative. DATA REPOSITORY: RADIATION DOSE DELIVERED:
--- OUTSIDE RECORDS SUMMARY | 2024-08-11 10:55 | XMS_ITS | Encounter Summary ---
Author Organization [facility] Address [address] [place] [address] Care Team Providers Care Coroner/Medical Examiner Name Role Phone Perez Mark Bhakta DO Primary Care Provider [phone] Encounter Details Date Type Department Care Team (Late st Contact Info) Description 11/13/2020 Lab Requisition [facility] Pathology & Laboratory Medicine - [facility] [address] [place], [place] [address] Outr Resulting Lab, Provider Social History Tobacco Use Types Packs/Day Years Used Date Smoking Tobacco: Never Assessed Sex and Gender Information Value Date Recorded Sex Assigned at Not on file Legal Sex Male 18:47 EST Gender Identity Not on file Sexual Orientation Not on file documented as of this encounter Plan of Treatment Not on file documented as of this encounter Procedures Procedure Name Priority Date/Time Associated Diagnosis Comments PSA TOTAL, DIAGNOSTIC Routine 11/13/2020 9:23 EDT documented in this encounter Results * PSA TOTAL, DIAGNOSTIC (11/13/2020 9:23 EDT) PSA 0.6 0.0 - 4.5 ng/mL 11/13/2020 17:05 EDT [facility] Blood VENOUS BLOOD / Unknown 11/13/2020 9:23 EDT 11/13/2020 15:46 EDT Narrative [facility] - 11/13/2020 17:05 EDT NOTE: Serum PSA concentration should not be interpreted as absolute evidence for the presence or absence of malignant disease. Assayed on Siemens ADVIA Centaur XPT using chemiluminescent technology.??Values obtained by using different assay methods cannot be used interchangeably. us Provider Outr Resulting Lab CHEMISTRY & BLOOD GA S ORDERABLES Final Result [facility] [address] [place] [address] documented in this encounter Visit Diagnoses Not on filedocumented in this encounter Care Teams Coroner/Medical Examiner Relationship Specialty Start Date End Date Mark Todd DO [address] [place] [address] PCP - General 07/03/09 documented as of this encounter
--- OUTSIDE RECORDS SUMMARY | 2024-08-11 10:55 | XMS_ITS | Encounter Summary ---
Author Organization [facility] [place] [address] Care Team Providers Care Farmworkers Name Role Phone Mark Todd DO Primary Care Provider Reason for Visit * Reason Comments Skin Check Encounter Details Date Type Department Care Team ([facility] st Contact Info) Description 08/04/2013 3:00 PM EST Office Visit Dermatology at [address] [phone] Phani Nolasco MD [address] [place] [address], [place] [address] Allergic contact dermatitis (Primary Dx); Stasis dermatitis, [...] seen at [facility] and also at [facility] in the Allergy Clinic. Unfortunately, despite allergy [...] more generalized. He has been seen at [facility], but also at [facility] at the Allergy Clinic. Patch testing there [...] a field. 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 He denies any past history of [...] left documented in this encounter Care Teams Farmworkers Relationship Specialty Start Date End Date Mark Todd DO [address] [place] [address] PCP - General 05/21/10 documented as of this encounter
--- OUTSIDE RECORDS SUMMARY | 2024-08-11 10:55 | XMS_ITS | Encounter Summary ---
Author Organization [facility] Address [facility] [place] [address] Care Team Providers Care Programs Assistant Name Role Phone Mark Todd DO Primary Care Provider Reason for Visit * Reason Onset Date Comments Medication Refill 08/13/2011 Encounter Details Date Type Department Care Team ([facility] st Contact Info) Description 08/13/2011 [place] [address] José Antonio Dhillon MD [facility] [address] ALLERGY [place] [address] Dermatitis Social History Tobacco Use Types Packs/Day [...] cause documented in this encounter Care Teams Programs Assistant Relationship Specialty Start Date End Date Mark Todd DO [address] [place], [place] [address] PCP - General 05/21/10 documented as of this encounter
--- OUTSIDE RECORDS SUMMARY | 2024-08-11 10:55 | XMS_ITS | Encounter Summary ---
Author Organization [facility] [place] [address] Care Team Providers Care Inspector Sheet Metal Parts Name Role Phone Mark Todd DO Primary Care Provider Encounter Details Date Type Department Care Team (Late st Contact Info) Description 08/13/2011 Telephone [place] [phone] José Antonio Dhillon MD [facility] [place] [address] Social History Tobacco Use Types Packs/Day Years Used Date Smoking Tobacco: Never Assessed Sex and Gender Information Value Date Recorded Sex Assigned at Not on file Gender Identity Not on file Sexual Orientation Not on file documented as of this encounter Miscellaneous Notes * Telephone Encounter - Jose D Olivas LPN - 08/13/2011 10:06 AM EST RX for larger tube called into [facility] for Kenalog 0.1% cream. RX now for 80gram tube. documented in this encounter Plan of Treatment Not on file documented as of this encounter Visit Diagnoses Not on filedocumented in this encounter Care Teams Inspector Sheet Metal Parts Relationship Specialty Start Date End Date Mark Todd DO [address] [place] [address] PCP - General 05/21/10 documented as of this encounter
--- OUTSIDE RECORDS SUMMARY | 2024-08-11 10:55 | XMS_ITS | Encounter Summary ---
Author Organization [facility] [place] [address] Care Team Providers Care Heater Tender Name Role Phone Perez Mark KEY Primary Care Provider [phone] Encounter Details Date Type Department Care Team (Late st Contact Info) Description 04/06/2009 [place] [address] Heron Frey MD DERMATOPATHOLOGY Social History Tobacco [...] Pathology Report (04/06/2009 5:45 PM EDT) Pathologist [facility] Surgical Pathology Report [id number] ? Location: 4M The signing pathologist has (i) examined the relevant preparation(s) for the specimen(s) and (ii) rendered or confirmed the diagnosis(es). . ?Pathology Surgical Pathology Final Report Clinical Information Specimen Submitted: A - Skin, L baptism, Incisional biopsy (1): B - Skin, L baptism, 4-mm Punch (1): Clinical History: 3 cm fluctuant nodule on the L baptism, growing rapidly -- culture grew MRSA Clinical Diagnosis: Botryomycosis, furunculosis, atypical mycobacterial, deep fungal. Gross Description A - Labeled/Fixative : A exc left baptism, formalin. Qty/Size/Weight: ?Single, 0.9 x 0.4 x 0.3 cm. Tissue Description: ?? There is a pale, mobley-pink skin surface. Sections/Process ing: ??Inked. ??Trisected. ??Apical sections are ?submitted in (A1); cross-section in (A2) ?(T2) B - Labeled/Fixative : B punch L baptism, formalin. Qty/Size/Weight: ?Single punch, 0.4 cm, there is a pale, ?mobley-pink skin surface. Sections/Process ing: ??Bisected. ??(T1) ??vms/PPS Microscopic Description Slides reviewed, microscopic description not recorded. Special stains are performed. ?? Block ? Stain ?Result ( Positive / Negative ) ??A2,B1 ? AFB,GMS,Gram ?See comment. ?on each block Diagnosis A - Left baptism, incisional biopsy: ?Dermal neutrophilic abscess with necrosis (see Comment). B - Left baptism, punch biopsy: ?Dermal neutrophilic abscess with necrosis [...] to those seen in the previous specimens ([id number]). Stains for organisms (AFB, GMS, and Gram) [...] on filedocumented in this encounter Care Teams Heater Tender Relationship Specialty Start Date End Date Mark Todd DO [address] [place] [address] PCP - General 05/21/10 documented as of this encounter
--- OUTSIDE RECORDS SUMMARY | 2024-08-11 10:55 | XMS_ITS | Encounter Summary ---
Author Organization [facility] Address [facility] [place] [address] Care Team Providers Care Manager Sports Name Role Phone Mark Todd DO Primary Care Provider Reason for Visit * Reason Comments Allergic Reaction Encounter Details Date Type Department Care Team ([facility] st Contact Info) Description 04/01/2011 2:15 PM EDT Office [place] [phone] José Antonio Dhillon MD [facility] [address] [place] [address] Dermatitis; History of MRSA infection; Allergic rhinitis [...] unspecified documented in this encounter Care Teams Manager Sports Relationship Specialty Start Date End Date Mark Todd DO [address] [place] [address] PCP - General 05/21/10 documented as of this encounter
--- OUTSIDE RECORDS SUMMARY | 2024-08-11 10:55 | XMS_ITS | Encounter Summary ---
[place] [address] Care Team Providers Care Career Manager Name Role Phone Perez, Mark KEY Primary Care Provider [phone] Reason for Visit * Reason Comments Follow-up Encounter Details Date Type Department Care Team ([facility] st Contact Info) Description 12/22/2013 3:15 PM EDT Office Visit Dermatology at [address] [place] [phone] Phani Nolasco MD [address], [place] [address] Irritant contact dermatitis (Primary Dx) Social History Tobacco Use Types Packs/Day Years Used Date Smoking Tobacco: Never Sex and Gender Information Value Date Recorded Sex Assigned at Not on file Gender Identity Not on file Sexual Orientation Not on file documented as of this encounter Patient Instructions * Patient Instructions* Eneida Rain LPN - 12/22/2013 3:59 PM EDT [facility] Dermatitis: After Your Visit Your [...] help for plant rashes. ?? Try an efxr-evn-pbnfvpi antihistamine such as diphenhydramine (Benadryl) or chlorpheniramine [...] more? Visit our health information library at [email or web address] You can also view health information on [employer], your personal patient account. Log in or sign up today. Enter F270 in the search box to learn more about Dermatitis: After Your Visit. ?? [phone] [employer]. Care instructions adapted under license by [facility]. This care instruction is for use with your licensed healthcare professional. If you have questions about a medical condition or this instruction, always ask your healthcare professional. [employer] disclaims any warranty or liability for your use of this information. Content Version: 9.9.753086; Last Revised: November 12, 2012 documented in [...] cause documented in this encounter Care Teams Career Manager Relationship Specialty Start Date End Date Mark Todd DO [address] [place] [address] PCP - General 05/21/10 documented as of this encounter
--- OUTSIDE RECORDS SUMMARY | 2024-08-11 10:55 | XMS_ITS | Encounter Summary ---
Author Organization [facility] Address [facility] [place] [address] Care Team Providers Care Sketch Maker Name Role Phone Mark Todd DO Primary Care Provider [phone] Reason for Visit * Reason Onset Date Comments Medication Refill 07/02/2011 Encounter Details Date Type Department Care Team (Late st Contact Info) Description 07/02/2011 [place] [address] José Antonio Dhillon MD [facility] [address] [place] [address] Dermatitis Social History Tobacco Use Types Packs/Day Years Used Date Smoking Tobacco: Never Assessed Sex and Gender Information Value Date Recorded Sex Assigned at Not on file Gender Identity Not on file Sexual Orientation Not on file documented as of this encounter Miscellaneous Notes * Telephone Encounter - Marlene Araujo - 07/02/2011 3:58 PM EST [facility] call into [facility]. documented in this encounter Plan of Treatment Not on file documented as of this encounter Visit Diagnoses Diagnosis Dermatitis Contact dermatitis and other eczema, due to unspecified cause documented in this encounter Care Teams Sketch Maker Relationship Specialty Start Date End Date Mark Todd DO [address] [place], [place] [address] PCP - General 05/21/10 documented as of this encounter
--- OUTSIDE RECORDS SUMMARY | 2024-08-11 10:55 | XMS_ITS | Encounter Summary ---
Author Organization [facility] Address [facility] [place] [address] Care Team Providers Care Video Editor Name Role Phone Perez, Mark KEY Primary Care Provider [phone] Reason for Visit * Reason Comments Follow-up Encounter Details Date Type Department Care Team ([facility] st Contact Info) Description 04/04/2011 1:45 PM EDT [place] [phone] José Antonio Dhillon MD [facility] [address] [place] [address] Contact dermatitis (Primary Dx) Discharge Disposition: Home [...] cause documented in this encounter Care Teams Video Editor Relationship Specialty Start Date End Date Mark Todd DO [address] [place] [address] PCP - General 05/21/10 documented as of this encounter
--- OUTSIDE RECORDS SUMMARY | 2024-08-11 10:55 | XMS_ITS | Encounter Summary ---
Author Organization [facility] Address [address] [place] [address] Care Team Providers Care Edge Sawyer Name Role Phone Perez Mark Bhakta DO Primary Care Provider [phone] Encounter Details Date Type Department Care Team (Late st Contact Info) Description 01/12/2024 Lab Requisition [facility] Pathology & Laboratory Medicine - [facility] [address] [place] [address] Outr Resulting Lab, Provider Social History Tobacco [...] Associated Diagnosis Comments PSA TOTAL, DIAGNOSTIC Routine 01/12/2024 15:47 EDT documented in this encounter Results * PSA TOTAL, DIAGNOSTIC (01/12/2024 15:47 EDT) PSA 0.7 <=6.5 ng/mL 01/13/2024 9:13 EDT [facility] Blood VENOUS BLOOD / Unknown 01/12/2024 15:47 EDT 01/12/2024 22:05 EDT Narrative [facility] - 01/13/2024 9:13 EDT NOTE: Serum PSA concentration should not be interpreted as absolute evidence for the presence or absence of malignant disease. Assayed on Siemens ADVIA Centaur XPT using chemiluminescent technology.??Values obtained by using different assay methods cannot be used interchangeably. us Provider Outr Resulting Lab CHEMISTRY & BLOOD GA S ORDERABLES Final Result [facility] [address] [place], [place] [id number] documented in this encounter Visit Diagnoses Not on filedocumented in this encounter Care Teams Edge Sawyer Relationship Specialty Start Date End Date Mark Todd DO [address] [place] [address] PCP - General 07/03/09 documented as of this encounter
--- OUTSIDE RECORDS SUMMARY | 2024-08-11 10:55 | XMS_ITS | Encounter Summary ---
Author Organization [facility] [address] Care Team Providers Care Biomedical Specialist Name Role Phone Mark Todd DO Primary Care Provider [phone] Encounter Details Date Type Department Care Team (Late st Contact Info) Description 07/31/2016 Refill Dermatology at [address] [place] [address] Mariana Wild, CASTING MOLDER Social History Tobacco Use Types Packs/Day Years Used Date Smoking Tobacco: Never Sex and Gender Information Value Date Recorded Sex Assigned at Not on file Gender Identity Not on file Sexual Orientation Not on file documented as of this encounter Plan of Treatment Not on file documented as of this encounter Visit Diagnoses Not on filedocumented in this encounter Care Teams Biomedical Specialist Relationship Specialty Start Date End Date Mark Todd DO [address] [place] [address] PCP - General 05/21/10 documented as of this encounter
--- OUTSIDE RECORDS SUMMARY | 2024-08-11 10:55 | XMS_ITS | Encounter Summary ---
Author Organization [facility] [place] [address] Care Team Providers Care Quality Control Manager Name Role Phone Mark Todd DO Primary Care Provider [phone] Encounter Details Date Type Department Care Team (Late st Contact Info) Description 03/29/2009 [place] [address] Rehan Hernandez MD DERMATOLOGY Social History Tobacco [...] (03/29/2009 7:53 AM EDT) Surgical Pathology Report [id number] ? Location: 4M The signing pathologist has (i) examined the relevant preparation(s) for the specimen(s) and (ii) rendered or confirmed the diagnosis(es). . ?Pathology Surgical Pathology Final Report Clinical Information Specimen Submitted: A - Skin left evangelical, shave: B - Skin Right parietal, shave: Clinical History: Hyperkeratotic nodule on right parietal scalp and left evangelical, developed over past week. ??Previous biopsy revealed spongiotic process. ??Generalized eczema. ??Treated with cyclosporine. Clinical Diagnosis: Pyoderma vs. KA Gross Description A - Labeled/Fixative : A - left evangelical, formalin. Qty/Size/Weight: ?Single shave, 1.1 x 0.8 [...] Diagnosis A and B - Skin left evangelical and right parietal, shave biopsies: ? Extensive [...] features of keratoacanthoma are not seen. [facility] 03/29/2009 7:53 AM EDT Rehan Hernandez MD PATHOLOGY/CYTOLOGY O RDERABLES Performing Organization Address City/State/[facility] Co de Phone Number [facility] documented in this encounter Visit Diagnoses Not on filedocumented in this encounter Care Teams Quality Control Manager Relationship Specialty Start Date End Date Mark Todd DO [address] [place] [address] PCP - General 05/21/10 documented as of this encounter
--- OUTSIDE RECORDS SUMMARY | 2024-08-11 10:55 | XMS_ITS | Referral Summary ---
Author Organization [facility] Address [address] [place] [address] Care Team Providers Care Naval Gunfire Liaison Officer Name Role Phone Mark Todd DO Primary Care Provider [phone] Social History Tobacco Use Types Packs/Day Years Used Date Smoking Tobacco: Never Assessed Sex and Gender Information Value Date Recorded Sex Assigned at Not on file Legal Sex Male 18:47 EST Gender Identity Not on file Sexual Orientation Not on file Plan of Treatment Not on file Care Teams Naval Gunfire Liaison Officer Relationship Specialty Start Date End Date Mark Todd DO [address] [place] [address] PCP - General 07/03/09
--- OUTSIDE RECORDS SUMMARY | 2024-08-11 10:55 | XMS_ITS | Encounter Summary ---
Author Organization [facility] [place] [address] Care Team Providers Care Pumper Hand Name Role Phone Mark Todd DO Primary Care Provider [phone] Encounter Details Date Type Department Care Team (Late st Contact Info) Description 06/15/2018 Refill Dermatology at [address] [place] [address] Mariana Wlid, LODGE ATTENDANT Social History Tobacco Use Types Packs/Day Years [...] on filedocumented in this encounter Care Teams Pumper Hand Relationship Specialty Start Date End Date Mark Todd DO [address] [place] [address] PCP - General 05/21/10 documented as of this encounter
--- OUTSIDE RECORDS SUMMARY | 2024-08-11 10:55 | XMS_ITS | Encounter Summary ---
Author Organization [facility] [place] [address] Care Team Providers Care Lay Midwife Name Role Phone Mark Todd DO Primary Care Provider [phone] Reason for Referral * Consultation (Routine) - Closed Specialty Diagnoses / Procedures Referred By Jase herbert Referred To Contact Dermatology Diagnoses CONTACT DERM USE MOBILE NUMBER COORDINATE WITH José Antonio Dhillon MD [facility] DR ALLERGY [place] [address] [facility] [address] [place] [address] Referral ID Status Reason Start Date Expiration Date V isits Requested Visits Authorized [id number] Closed Consult, Test & Treat 02/05/2012 08/03/2012 1 1 Reason for Visit * Reason Comments Follow-up Encounter Details Date Type Department Care Team ([facility] Contact Info) Description 02/05/2012 3:45 PM EDT [place] [address] José Antonio Dhillon MD [facility] DR ALLERGY [place] [address] Contact dermatitis; Allergic rhinitis Discharge Disposition: Home [...] unspecified documented in this encounter Care Teams Lay Midwife Relationship Specialty Start Date End Date Mark Todd DO [address] [place] [address] PCP - General 05/21/10 documented as of this encounter
--- OUTSIDE RECORDS SUMMARY | 2024-08-11 10:55 | XMS_ITS | Encounter Summary ---
Author Organization [facility] Address [facility] [place] [address] Care Team Providers Care Sander Hand Name Role Phone Mark Todd DO Primary Care Provider Reason for Visit * Reason Onset Date Comments Medication Refill 10/06/2011 Encounter Details Date Type Department Care Team ([facility] st Contact Info) Description 10/06/2011 [place] [address] José Antonio Dhillon MD [facility] DR [place] [address] Dermatitis; Multiple allergies Social History Tobacco Use [...] agents documented in this encounter Care Teams Sander Hand Relationship Specialty Start Date End Date Mark Todd DO [address] [place] [address] PCP - General 05/21/10 documented as of this encounter
--- OUTSIDE RECORDS SUMMARY | 2024-08-11 10:55 | XMS_ITS | Encounter Summary ---
Author Organization [facility] [place] [address] Care Team Providers Care Loss Prevention Research Engineer Name Role Phone Mark Todd DO Primary Care Provider Reason for Visit * Reason Comments Medication Refill Encounter Details Date Type Department Care Team (Late st Contact Info) Description 09/16/2023 Refill Dermatology at [address] [place] [address] Phani Nolasco MD [address] [place] [address] RD, [place] [address] Social History Tobacco Use Types Packs/Day Years [...] on filedocumented in this encounter Care Teams Loss Prevention Research Engineer Relationship Specialty Start Date End Date Mark Todd DO [address] [facility] [facility] [facility] [place] [address] PCP - General 05/21/10 documented as of this encounter
--- OUTSIDE RECORDS SUMMARY | 2024-08-11 10:55 | XMS_ITS | Encounter Summary ---
Author Organization [facility] [place] [address] Care Team Providers Care Assistant Professor Of Drama Name Role Phone Mark Todd DO Primary Care Provider [phone] Reason for Visit * Reason Comments Skin Check Encounter Details Date Type Department Care Team (Late st Contact Info) Description 06/24/2016 2:15 PM EST Office Visit Dermatology at [address] [place] [address] Phani Nolasco MD [address] [place] [address], [address] [address] Eczema, unspecified type Social History Tobacco Use [...] type documented in this encounter Care Teams Assistant Professor Of Drama Relationship Specialty Start Date End Date Mark Todd DO [address] [facility] [place] [address] PCP - General 05/21/10 documented as of this encounter
--- OUTSIDE RECORDS SUMMARY | 2024-08-11 10:55 | XMS_ITS | Encounter Summary ---
Author Organization [facility] Address [facility] [place] [address] Care Team Providers Care Vat House Laborer Name Role Phone Mark Todd DO Primary Care Provider [phone] Reason for Visit * Reason Comments Allergy Testing Encounter Details Date Type Department Care Team ([facility] st Contact Info) Description 04/03/2011 3:15 PM EDT [place] [phone] José Antonio Dhillon MD [facility] [place] [address] Contact dermatitis (Primary Dx) Discharge Disposition: Home [...] cause documented in this encounter Care Teams Vat House Laborer Relationship Specialty Start Date End Date Mark Todd DO [address] [facility] [place] [address] PCP - General 05/21/10 documented as of this encounter
--- OUTSIDE RECORDS SUMMARY | 2024-08-11 10:55 | XMS_ITS | Encounter Summary ---
Author Organization [facility] [place] [address] Care Team Providers Care Hearing Aid Repair Technician Name Role Phone Mark Todd DO Primary Care Provider Reason for Visit * Reason Onset Date Comments Medication Refill 07/21/2011 Encounter Details Date Type Department Care Team (Late st Contact Info) Description 07/21/2011 [place] [address] José Antonio Dhillon MD [facility] DR ALLERGY [place] [address] Dermatitis Social History Tobacco Use Types Packs/Day [...] cause documented in this encounter Care Teams Hearing Aid Repair Technician Relationship Specialty Start Date End Date Mark Todd DO [address] [place] [address] PCP - General 05/21/10 documented as of this encounter
--- OUTSIDE RECORDS SUMMARY | 2024-08-11 10:55 | XMS_ITS ---
Author Organization Unknown ALLERGIES AND ADVERSE REACTIONS No information ASSESSMENT No information CHIEF COMPLAINT No information MEDICATIONS No information OBJECTIVE DATA No information PHYSICAL EXAMINATION No information TREATMENT PLAN Planned Care Start Date Provider Encounter for Check-up [id number] PROBLEMS No information RESULTS No information REVIEW OF SYSTEMS No information SUBJECTIVE DATA No information VITAL SIGNS No information
--- OUTSIDE RECORDS SUMMARY | 2024-08-11 10:55 | XMS_ITS | Encounter Summary ---
Author Organization [facility] [place] [address] Care Team Providers Care Security Sales Consultant Name Role Phone Mark Todd DO Primary Care Provider Reason for Visit * Reason Onset Date Comments Medication Refill 09/29/2011 Encounter Details Date Type Department Care Team (Late st Contact Info) Description 09/29/2011 [place] [address] José Antonio Dhillon MD [facility] DR [place] [address] Dermatitis Social History Tobacco Use Types Packs/Day [...] cause documented in this encounter Care Teams Security Sales Consultant Relationship Specialty Start Date End Date Mark Todd DO [address] [place] [address] PCP - General 05/21/10 documented as of this encounter
--- OUTSIDE RECORDS SUMMARY | 2024-08-11 10:55 | XMS_ITS | Encounter Summary ---
Author Organization [facility] [place] [address] Care Team Providers Care Knit Goods Press Hand Name Role Phone PerezMark kay Primary Care Provider Reason for Visit * Reason Comments Skin Check Encounter Details Date Type Department Care Team (Late st Contact Info) Description 03/31/2012 3:30 PM ED[place] [address] CLINIC, Sp Hernandez MD [facility] [place] [address] Atopic dermatitis (Primary Dx); Inflamed seborrheic keratosis; [...] changes: Danilo Merida MD Section of Dermatology [facility] documented in this encounter Plan of Treatment Not on file documented as of this encounter Visit Diagnoses Diagnosis Atopic dermatitis- Primary Other atopic dermatitis and related conditions Inflamed seborrheic keratosis Dermal nevus Benign neoplasm of skin, site unspecified documented in this encounter Care Teams Knit Goods Press Hand Relationship Specialty Start Date End Date Mark Todd DO [address] [place] [address] PCP - General 05/21/10 documented as of this encounter
--- OUTSIDE RECORDS SUMMARY | 2024-08-11 10:55 | XMS_ITS | Encounter Summary ---
Author Organization [facility] [place] [address] Care Team Providers Care Sr. Social Media & Mobile Manager Name Role Phone Mark Todd DO Primary Care Provider [phone] Encounter Details Date Type Department Care Team (Late st Contact Info) Description 04/04/2011 2:15 PM EDT [place] [address] Diamante Wang RN Social History Tobacco Use [...] on filedocumented in this encounter Care Teams Sr. Social Media & Mobile Manager Relationship Specialty Start Date End Date Mark Todd DO [address] [place] [address] PCP - General 05/21/10 documented as of this encounter
--- OUTSIDE RECORDS SUMMARY | 2024-08-11 10:55 | XMS_ITS | Encounter Summary ---
Author Organization [facility] [place] [address] Care Team Providers Care Roll Skinner Name Role Phone Mark Todd DO Primary Care Provider Reason for Visit * Reason Comments Follow-up Skin Check Encounter Details Date Type Department Care Team (Late st Contact Info) Description 06/15/2018 9:45 AM EST Office Visit Dermatology at [address] [place] [address] Phani Nolasco MD [address] [place] [address], [place] [address] Eczema, unspecified type; Tinea pedis of left [...] refill to [facility] pharmacy in [place] for a 45 g tube with 3 [...] foot documented in this encounter Care Teams Roll Skinner Relationship Specialty Start Date End Date Mark Todd DO [address] [place] [address] PCP - General 05/21/10 documented as of this encounter
--- OUTSIDE RECORDS SUMMARY | 2024-08-11 10:55 | XMS_ITS | Clinical Summary ---
Author Organization [facility] Address [address] [place] [address] Care Team Providers Care 6Th Grade Teacher Name Role Phone Mark Todd DO Primary Care Provider [phone] Social History Tobacco Use Types Packs/Day Years Used Date Smoking Tobacco: Never Assessed Sex and Gender Information Value Date Recorded Sex Assigned at Not on file Legal Sex Male 18:47 EST Gender Identity Not on file Sexual Orientation Not on file Plan of Treatment Health Maintenance Due Date Last Done Comments Hepatitis C Screen 1950 Fall Risk Screening 2017 COVID-19 Vaccine ( season) 2024 RSV Immunization ( o r 60+ Years) (1 - 1-dose 75+ series) 12/01/2027 Care Teams 6Th Grade Teacher Relationship Specialty Start Date End Date Mark Todd DO [address] [place] [address] PCP - General 07/03/09
--- OUTSIDE RECORDS SUMMARY | 2024-08-11 10:55 | XMS_ITS | Clinical Summary ---
Author Organization [facility] [place] [address] Care Team Providers Care Certified Green Building Engineer Name Role Phone Mark Todd DO Primary Care Provider [phone] Allergies Active Allergy Reactions Criticality Noted Date [...] Hepatitis C Screening 1970 Lipid Screening 1970 Tetanus/Diphtheria/Pertussis Vaccines (1 - Tdap) 11/30 Pneumoccocal Vaccine: 50+ (1 of 1 - PCV) 2002 Zoster vaccine (1 of 2) 2002 Advance Directive 12/01/2007 Covid-19 Vaccine (1 - 2023- season) 2024 Influenza (Flu) vaccine (1 o f 1 - Influenza standard series) 02/28/2024 Care Teams Certified Green Building Engineer Relationship Specialty Start Date End Date Mark Todd DO [address] [place] [address] [address] [place] [address] PCP - General 05/21/10
--- OUTSIDE RECORDS SUMMARY | 2024-08-11 10:55 | XMS_ITS | Encounter Summary ---
Author Organization [facility] [place] [address] Care Team Providers Care Bankman Name Role Phone Mark Todd DO Primary Care Provider Encounter Details Date Type Department Care Team (Late st Contact Info) Description 04/03/2011 3:20 PM EDT [place] [id number] Diamante Wang RN Social History Tobacco Use [...] on filedocumented in this encounter Care Teams Bankman Relationship Specialty Start Date End Date Mark Todd DO [address] [place] [address] PCP - General 05/21/10 documented as of this encounter
--- OUTSIDE RECORDS SUMMARY | 2024-08-11 10:55 | XMS_ITS | Encounter Summary ---
Author Organization [facility] Address [facility] [place] [address] Care Team Providers Care Rotary Drier Name Role Phone Mark Todd DO Primary Care Provider [phone] Reason for Visit * Reason Onset Date Comments Medication Refill 11/05/2011 Encounter Details Date Type Department Care Team (Late st Contact Info) Description 11/05/2011 [place] [address] José Antonio Dhillon MD [facility] [place] [address] Dermatitis; Multiple allergies Social History Tobacco Use [...] agents documented in this encounter Care Teams Rotary Drier Relationship Specialty Start Date End Date Mark Todd DO [address] [place], [place] [id number] PCP - General 05/21/10 documented as of this encounter
--- OUTSIDE RECORDS SUMMARY | 2024-08-11 10:55 | XMS_ITS | Encounter Summary ---
Author Organization [facility] [place] [address] Care Team Providers Care Insole Rasper Name Role Phone Mark Todd DO Primary Care Provider [phone] Encounter Details Date Type Department Care Team (Late st Contact Info) Description 03/15/2009 [place] [id number] Rehan Hernandez MD DERMATOLOGY Social History Tobacco [...] Pathology Report (03/15/2009 12:32 PM EDT) Pathologist [facility] Surgical Pathology Report [id number] ? Location: 4M The signing pathologist has [...] on filedocumented in this encounter Care Teams Insole Rasper Relationship Specialty Start Date End Date Mark Todd DO [address] [place] [address] [address] [place] [address] PCP - General 05/21/10 documented as of this encounter
== END 2024-08-11 11:12 ==
LOC: DI 10:53
PROVIDERS: PCP Nurse Practitioner Family; Visit Provider Nurse Practitioner Family
DX: M19.011 Primary osteoarthritis, right shoulder (principal)
CPT/HCPCS: 73030

== ENCOUNTER → 2024-08-19 07:48 | Outpatient (BNVA) | payer MEDICARE, SELFPAY | PROVIDERS: PCP Nurse Practitioner Family; Referring Provider Nurse Practitioner Family; Visit Provider Physical Therapy Assistant | DX: I73.9 Peripheral vascular disease, unspecified (principal) | CPT/HCPCS: 93922 ==

== ENCOUNTER 2024-09-20 14:24 | Outpatient (CLI) | payer MEDICARE, SELFPAY ==
--- NOTE | 2024-09-20 10:45 | DI.RAD_ITS ---
Exam(s) XR WRIST LT LIMITED EXAM: XR WRIST LT LIMITED CLINICAL HISTORY: LEFT WRIST PAIN. TECHNIQUE: 2D digital imaging was performed. Three views. COMPARISON: No exams were available for comparison FINDINGS: BONES: No acute fracture is present. No bony destructive lesion is seen. JOINTS: The carpal bones are normally aligned. Of the joint space narrowing and spurring at the dis ibeth radial ulnar joint. Severe degenerative changes also present at scaphoid trapezium trapezoid mitchel nts. SOFT TISSUE: Normal. 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 DATA REPOSITORY: RADIATION DOSE DELIVERED:
== END 2024-09-20 14:25 | disposition home or self-care (01) ==
LOC: DIORS 15:46
PROVIDERS: PCP Nurse Practitioner Family; Referring Provider Nurse Practitioner Family; Visit Provider Student in an Organized Health Care Education/Training Program
DX: G56.02 Carpal tunnel syndrome, left upper limb; M19.011 Primary osteoarthritis, right shoulder; M19.012 Primary osteoarthritis, left shoulder; S46.212A Strain of muscle, fascia and tendon of other parts of biceps, left arm, initial encounter; S46.211A Strain of muscle, fascia and tendon of other parts of biceps, right arm, initial encounter; X58.XXXA Exposure to other specified factors, initial encounter
CPT/HCPCS: 99214; 73100

== ENCOUNTER → 2024-11-28 10:37 | Outpatient (BNVA) | payer MEDICARE, SELFPAY | PROVIDERS: PCP Nurse Practitioner Family; Referring Provider Nurse Practitioner Family; Visit Provider Student in an Organized Health Care Education/Training Program | DX: G56.02 Carpal tunnel syndrome, left upper limb (principal) | CPT/HCPCS: 99214 ==

== ENCOUNTER 2024-12-05 02:00 | Outpatient (CLI) | payer MEDICARE, SELFPAY ==
--- NOTE | 2024-12-05 08:15 | DI.RAD_ITS ---
Exam(s) XR FOOT RT COMPLETE EXAM: XR FOOT RT COMPLETE CLINICAL HISTORY: Right foot pain,[id number]. TECHNIQUE: 2D digital imaging was performed. COMPARISON: No exams were available for comparison FINDINGS: 3 views No evidence of fracture or diastasis of the Lisfranc joint. There are advanced osteoarthritic degenerative changes in the great toe metatarsophalangeal joint. T here is joint space narrowing and marginal osteophytes and para-articular calcification at this level . There is also lateral deviation of the phalanges of the great toe with the distal phalanx overlapp ing the phalanges of the adjacent 2nd toe. The interphalangeal joint of the great toe appears unrema rkable. There is a small inferior calcaneal spur. IMPRESSION: Advanced degenerative changes in the great toe metatarsophalangeal joint as described above. Lateral deviation of the phalanges of the great toe. DATA REPOSITORY: RADIATION DOSE DELIVERED:
== END 2024-12-05 02:20 ==
LOC: DI 02:00
PROVIDERS: PCP Nurse Practitioner Family; Visit Provider Podiatrist
DX: M19.071 Primary osteoarthritis, right ankle and foot (principal)
CPT/HCPCS: 29540; 73630

== ENCOUNTER 2024-12-05 08:58 | Outpatient (CLI) | payer MEDICARE, SELFPAY ==
[2024-12-05 08:29] LABS: Hemoglobin A1C 5.6 % (<5.7)
[2024-12-05 08:32] LABS: Anion Gap 4.7 mmol/L (3-11); BUN 20 mg/dL (7-18); CO2 28.3 mmol/L (21.0-32.0); CREATININE 1.1 mg/dL (0.70-1.30); Calcium 8.9 mg/dL (8.5-10.1); Calculated LDL 98 mg/dL (<100); Chloride 104 mmol/L (98-107); Cholesterol 155 mg/dL (<200); Estimated GFR 71.32 (mL/min/1.73m2); Glucose 100 mg/dL (74-106); HDL Cholesterol 48 mg/dL (>or=40); Potassium 4.6 mmol/L (3.5-5.1); Sodium 137 mmol/L (136-145); Triglyceride 45 mg/dL (<150)
== END 2024-12-05 08:59 | disposition home or self-care (01) ==
LOC: LBO 08:58
PROVIDERS: PCP Nurse Practitioner Family; Visit Provider Nurse Practitioner Family
DX: Z13.6 Encounter for screening for cardiovascular disorders (principal); Z13.1 Encounter for screening for diabetes mellitus
CPT/HCPCS: 36415; 80048; 80061; 83036

== ENCOUNTER 2024-12-07 10:48 | Day surgery (SDC) | payer MEDICARE, SELFPAY ==
--- NOTE | 2024-12-07 07:39 | W.PM.DSUDISC ---
Date of service: 12/07/24 Discharge Plan Disposition Patient Disposition: Home Condition: Good Discharge Details Reason For Visit: L ECTR Attending Provider: Zeeshan Roberson Primary Care Provider: Rickey Strong Home Meds and New Rx's Prescriptions: New acetaminophen 500 mg tablet 1,000 mg PO TID Qty: 90 0RF ibuprofen 600 mg tablet 600 mg PO TID PRN (Reason: pain) Qty: 90 0RF Continued multivitamin with iron [One Daily Multi-Vit w-Mineral] tablet 1 tab PO DAILY cholecalciferol (vitamin D3) 1,000 unit capsule 1,000 unit PO DAILY tacrolimus 0.1 % ointment topical PRN Patient Comments: APPLY TO RASH ON LEG TWO TIMES A DAY clindamycin HCl 300 mg capsule 1,200 mg PO ONCE PRN Patient Comments: TAKE TWO CAPSULES ONE HOUR BEFORE DENTAL VISIT ferrous sulfate 325 mg (65 mg iron) tablet 325 mg PO DAILY Discharge Instructions Stand Alone Forms: Da Allan Tunnel Release Referrals: Zeeshan Roberson MD [ [facility] ST[facility]FF [facility]YSICIAN] - Activity:: Activity as Tolerated Remove Dressings/Wound Care:: 48 hours Shower/Bathe:: 48 hours Diet:: As Tolerated Discharge Orders Discharge Orders: Discharge Order (Routine); Ordered 12/07/24 Ordered By: Luciano Roman DS: Diagnosis Discharge Diagnosis (1) Carpal tunnel syndrome of left wrist: Status: Acute
[2024-12-07 11:16] VITALS: BP 139/78; PULSE 64; RESP 16; TEMP 36.6; O2SAT 98
[2024-12-07] MEDS: Cephalexin 500 MG CAP 1000 MG PO (11:35)
[2024-12-07] MEDS: Sodium Bicarbonate 50 MEQ/50 ML VIAL (12:50)
[2024-12-07] MEDS: Lidocaine 1% Multi-Dose W/EPI 1/100,000 50 ML VIAL (12:50)
[2024-12-07 13:00] VITALS: BP 131/69; PULSE 58; RESP 16; TEMP 36.2; O2SAT 98
--- NOTE | 2024-12-07 23:41 | ROE_ITS ---
Operative Note Operative Note PRE-OP DIAGNOSIS: Left Carpal Tunnel Syndrome POST-OP DIAGNOSIS: same PROCEDURE: Left Endoscopic Carpal Tunnel Release SURGEON: Zeeshan Roberson ANESTHESIA TYPE: Local By Surgeon Refer to Anesthesia Record ESTIMATED BLOOD LOSS: 0 PATHOLOGY: none sent TOURNIQUET TIME: 6 COMPLICATIONS: None Patient was transported to: same day Patient's condition: stable Indications: I have seen Mervin in clinic for symptoms of carpal tunnel syndrome. The numbness, tingling, and pain limited function. Clinical exam findings with nerve conduction tests confirmed the diagnosis of carpal tunnel syndrome. Nonoperative measures such as bracing, time, activity modifications had been tried but disability and pain persisted. I discussed carpal tunnel release with the patient. I reviewed the risks of the procedure to include, but not limited to, bleeding, infection, pain, stiffness, incomplete release, damage to nerves or vessels, persistent numbness, recurrence. Despite these risks, the patient elected to proceed. Findings: There was tightened carpal tunnel. This was dilated and released successfully with the endoscopic with increased space within the tunnel. The antebrachial fascia was released proximally freeing the median nerve at the wrist. Procedure Description: Mervin was greeted in the preoperative holding area where the correct side was identified and marked. The consent was reviewed with the patient and signed. The history and physical was updated. All questions were answered. Mervin was taken back to the operating room. The patient was placed into the supine position on the operating room table with the left arm on an arm board. A nonsterile tourniquet was placed high onto the arm. All bony prominences were well padded. Prophylactic antibiotics in the form of Cephalexin were administered. The left arm was then prepped with Chloraprep and draped in a standard fashion with stockinette and extremity drape. A timeout to confirm correct identity, side and site, procedure, allergies, anesthesia, and medical concerns was performed. The surgical site was marked in the volar wrist creases in line with the radial border of the fourth ray. This area was anesthetized with approximately 6cc of 1% Lidocaine. The limb was then exsanguinated with an Esmarch. The skin was incised with a 15 blade, approximately 1cm. The skin only was cut and the deeper tissue was dissected bluntly with a tenotomy scissor, avoiding passing nerve and venous structures. The fascia was penetrated and opened bluntly. A two-prong skin hook was placed under this proximal fascial edge. A series of hamate finders were used to identify and dilate the carpal tunnel. Synovial elevator was used to free synovial attachments to the underside of the transverse carpal ligament. My thumb was kept in the palm to marquita the distal extent of the carpal tunnel and correctly position the hand. The Microaire endoscope was inserted without difficulty and without resistance. Excellent visualization showed horizontally running fibers of the transverse carpal ligam ent (TCL). The distal extent of the TCL was visualized and the end of the scope palpated with the thumb. The blade was elevated and withdrawn from distal to proximal. The TCL was split into two flaps. The endoscope was reinserted to confirm complete release and any remnant ligament was incised. The scope was withdrawn and the proximal aspect of the carpal tunnel was grossly inspected and appeared release with the median nerve visible. The antebrachial fascia at the level of the wrist was then freed from the overlying skin and then the underlying median nerve with blunt dissection. This was transected longitudinally for about 3cm proximal to the wrist incision. The wound was then irrigated with easy flow of irrigant distally and proximally. The incision was closed with a single 4-0 Nylon suture. The wound was dressed with Xeroform, Gauze, Kerlix and Ja. The tourniquet was deflated with the initial dressing and held with some pressure. Blood flow returned easily to all digits with capillary refill less than 2 seconds. The patient tolerated the procedure well and was returned to the Same Day Surgery area in a stable condition suffering no known complication. Date of Procedure: 12/07/24
== END 2024-12-07 13:20 | disposition home or self-care (01) ==
LOC: SUR 10:48
PROVIDERS: PCP Nurse Practitioner Family; Visit Provider Student in an Organized Health Care Education/Training Program
PROC: 01N54ZZ Release Median Nerve, Percutaneous Endoscopic Approach (ICD-10-PCS; CPT 29848; principal; 2024-12-07 12:45)
DX: G56.02 Carpal tunnel syndrome, left upper limb (principal)
CPT/HCPCS: 29848; J2004

== ENCOUNTER → 2024-12-16 10:26 | Outpatient (BNVA) | payer MEDICARE, SELFPAY | PROVIDERS: PCP Nurse Practitioner Family; Referring Provider Nurse Practitioner Family; Visit Provider Physician Assistant | DX: Z47.89 Encounter for other orthopedic aftercare (principal); G56.02 Carpal tunnel syndrome, left upper limb | CPT/HCPCS: 99024 ==

== ENCOUNTER 2025-01-31 20:49 | Emergency (ER) | payer MEDICARE, SELFPAY ==
[2025-01-31 20:51] VITALS: BP 126/75; PULSE 71; RESP 20; TEMP 36.7; O2SAT 96
[2025-01-31 21:00] VITALS: RESP 16
--- NOTE | 2025-01-31 21:14 | W.ED.GENAD ---
Discharge Plan Disposition Patient Disposition: Home Condition: Stable Discharge Details Clinical Impression: Tick bite of penis Primary Care Provider: Rickey Strong ED Provider: Elyssa Jeronimo Home Meds and New Rx's Prescriptions: Continued multivitamin with iron [One Daily Multi-Vit w-Mineral] tablet 1 tab PO DAILY cholecalciferol (vitamin D3) 1,000 unit capsule 1,000 unit PO DAILY ferrous sulfate 325 mg (65 mg iron) tablet 325 mg PO DAILY acetaminophen 500 mg tablet 1,000 mg PO TID Qty: 90 0RF ibuprofen 600 mg tablet 600 mg PO TID PRN (Reason: pain) Qty: 90 0RF No Action tacrolimus 0.1 % ointment 1 applic topical BID PRN Patient Comments: APPLY TO RASH ON LEG TWO TIMES A DAY. pt. reports using today on L foot Discharge Instructions Instructions: Insect Bites and Stings ED Additional Instructions: At this time the recommendations for a tick bite less than 36 hours is to supply 1 dose of doxycycline 200 mg which you were given here today. Follow up with primary care provider in 3-5 days if needed be seen sooner for any worsening rash, body aches or concerns. Return sooner if any worsening or concerns. Thank you for allowing us to care for you today. Referrals: Rickey Strong, SILK EXAMINER [Primary Care Provider, Medicine] - 5 days Referral Note: ER follow up Clinical Impression: Tick bite of penis HPI General Mode of arrival: ambulatory. Date/Time Provider Initiated Documentation: 01/31/25 21:05. Limitations to Documentation: no limitations. Information obtained by: patient, RN notes reviewed and old records reviewed. HPI Narrative: 74-year-old male presents to the ER after noticing an engorged tick to the right side of his penile shaft while in the shower tonight. He states that he was crawling around under the deck today. He was able to remove the tick which was engorged and alive. Denies any other associated symptoms or concerns. Does have a past medical history of celiac disease, degenerative joint disease, hemorrhoids anemia diverticulosis depression Related Data Home Medications ?Medication ?Instructions ?Recorded ?Confirmed cholecalciferol (vitamin D3) 25 1,000 unit PO DAILY 03/10/18 01/31/25 mcg (1,000 unit) capsule multivitamin with iron (One Daily 1 tab PO DAILY 03/10/18 01/31/25 Multivitamins with Minerals tablet) ferrous sulfate 325 mg (65 mg 325 mg PO DAILY 11/15/21 01/31/25 iron) tablet tacrolimus 0.1 % topical ointment 1 applic topical BID PRN 08/10/24 01/31/25 acetaminophen 500 mg tablet 1,000 mg (2 x 500 mg) PO TID #90 12/07/24 01/31/25 tabs ibuprofen 600 mg tablet 600 mg PO TID PRN pain #90 tabs 12/07/24 01/31/25 Previous Rx's ?Medication ?Instructions ?Recorded acetaminophen 500 mg tablet 1,000 mg (2 x 500 mg) PO TID #90 12/07/24 tabs ibuprofen 600 mg tablet 600 mg PO TID PRN pain #90 tabs 12/07/24 Allergies Allergy/AdvReac Type Severity Reaction Status Date / Time Penicillins AdvReac Mild RASH Verified 01/31/25 20:54 General Stated Complaint: InsectBite LEENA: 4 Review of Systems All systems reviewed & are unremarkable except as noted in HPI and below Integumentary/Breasts Skin/Breast: Reports as per HPI, Reports unusual bruising and Reports wounds (Insect bite) Exam Male General Exam: Yes ecchymosis (Right side penile shft with central puncture marquita), No edema and No erythema Penis: normal penis, not edematous, not erythematous and other (Uncircumcised) Meatus: meatus normal Testes: normal Course Vital Signs Vital signs: Vital Signs Temperature 36.7 C 01/31/25 20:51 Pulse 71 01/31/25 20:51 Respiratory Rate 20 01/31/25 20:51 Blood Pressure 126/75 01/31/25 20:51 Pulse Oximetry 96 01/31/25 20:51 Temperature 36.7 C 01/31/25 20:51 Pulse 71 01/31/25 20:51 Respiratory Rate 16 01/31/25 21:00 Respiratory Effort Normal, Non-Labored 01/31/25 21:00 Respiratory Depth Normal 01/31/25 21:00 Respiratory Pattern Normal 01/31/25 21:00 Blood Pressure 126/75 01/31/25 20:51 Blood Pressure Position Sitting 01/31/25 20:51 Pulse Oximetry 96 01/31/25 20:51 Oxygen Delivery Method Room Air 01/31/25 21:00 Oxygen Flow Rate 0 01/31/25 21:00 Medical Decision Making Patient presents after finding an engorged tick on the right side of his penile shaft, moderate he was able to remove the tick intact, does have some ecchymosis and bruising around the puncture site. Denies any other rash, body aches or other associated symptoms. He reports that this most likely occurred today. Will give doxycycline 200 mg one-time dose. He verbalized understanding. This text was generated using [employer] system, please disregard any oddities of phrase or misspellings. 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 Celiac disease (Chronic) Remote diagnosis - after eval for borderline anemia with low ferritin Remote diagnosis at [facility]-no GI symptoms, diagnosed after evaluation for iron deficiency-borderline anemia Positive antibody test, unclear evaluation at [facility]. Notes not available for review looks as a work-up occurred before EMR no old notes available. Per patient no response to gluten therapy and he has discontinued this Unclear if this was biopsy proven. No response to gluten therapy, no symptoms on regular diet Question diagnosis Acquired hallux rigidus (Chronic) right great toe Medical History (Updated 01/31/25 @ 21:22 by Elyssa Jeronimo NP) COVID Hx MRSA infection Duodenitis Hearing loss Depression Diverticulosis large intestine w/o perforation or abscess w/bleeding Anemia Hemorrhoids Eczema DJD (degenerative joint disease) of knee Celiac disease Surgical History S/P foot surgery, right bone spur removal from the 1st ray (right foot); early 1999'. Status post total left knee replacement (~2013) Family History Mother , age 83 Essential hypertension Heart disease Breast cancer Father , age 89 Heart disease Hyperlipidemia Stroke Brother , age 65 Alcohol abuse Cancer Daughter No problems noted. Daughter No problems noted. Maternal Grandfather , age 69 Lung cancer Paternal Grandfather , age 84 No problems noted. Maternal Grandmother No problems noted. Paternal Grandmother No problems noted. Social History Smoking/Tobacco Use Status: Never Second Hand Exposure: Yes Smoking risk assessment performed?: Yes Alcohol Intake: current Alcohol Intake frequency: a few times a week Alcohol type: beer Drug use: Never Substance use type: does not use Counseling given: Yes Details: alcohol: t-1 , two beers Caregiver/Support person: No Household members: spouse Housing: house Communication Needs: Hard of Hearing and Corrective Lenses Do you need help understanding health information?: Never Pets and animals: No Sexually active: No Do you think of yourself as: straight/heterosexual Current gender identity: male What is your relationship status?: How often do you talk on the phone with friends or family?: three or more times per week How often do you get together with friends or relatives?: twice per week How often do you attend moravian or nondenominational services?: 4 or more times per year Do you belong to any clubs or organized social groups?: yes Panel score (0-1 are the most socially isolated patients): 4 What type of physical activity do you participate in: walking and weight lifting Duration: 15-30 minutes/day Frequency: 5-6 times per week Tomasa/Catholic: Evangelical Special tomasa needs: No Seatbelt use: always Helmet use: No Drive intox or ride w/intox team driver: No Do you feel safe at home: Yes Do you feel safe in your relationship?: Yes PAWSS Have you Been Recently Intoxicated or Drunk Within the Last 30 days?: No Have you Ever Experienced Previous Episodes of Alcohol Withdrawal?: No Have you ever Experienced Withdrawal Seizures?: No Have you ever Experienced Delirium Tremens(DT)s?: No Have you ever undergone Alcohol Rehabilitation Treatment (i.e, inpt ot outpatient treatment programs)?: No Have you ever Experienced Blackouts?: No Have you ever Combined Alcohol with other Downers within the last 90 days?: No Have you ever Combined Alcohol with any other Substance of Abuse during the last 90 days?: No Positive Blood Alcohol level on Presentation? [PCS.BAL]: No Evidence of Increased Autonomic Activity (i.e. HR>120, tremor, sweating, agitation, nausea)?: No Result: 0
[2025-01-31] MEDS: Doxycycline Hyclate 100 MG CAP 200 MG PO (21:34)
[2025-01-31 21:38] VITALS: RESP 16
== END 2025-01-31 21:38 | disposition home or self-care (01) ==
PROVIDERS: Emergency Provider Registered Nurse Emergency; PCP Nurse Practitioner Family
DX: S30.862A Insect bite (nonvenomous) of penis, initial encounter (principal); W57.XXXA Bitten or stung by nonvenomous insect and other nonvenomous arthropods, initial encounter; Y93.89 Activity, other specified; Y92.018 Other place in single-family (private) house as the place of occurrence of the external cause
CPT/HCPCS: 99283

== ENCOUNTER → 2025-03-14 09:20 | Outpatient (BNVA) | payer MEDICARE, SELFPAY | PROVIDERS: PCP Nurse Practitioner Family; Referring Provider Nurse Practitioner Family; Visit Provider Podiatrist | DX: M77.41 Metatarsalgia, right foot (principal); M20.21 Hallux rigidus, right foot; S93.524A Sprain of metatarsophalangeal joint of right lesser toe(s), initial encounter; X58.XXXA Exposure to other specified factors, initial encounter; M20.41 Other hammer toe(s) (acquired), right foot | CPT/HCPCS: 99213 ==